=== PATIENT | female | born 1980 | race Caucasian/White ===

== ENCOUNTER 2020-06-02 16:58 | Emergency (ER) | payer MEDICAID, SELFPAY ==
--- NOTE | ~2020-06-02 | CT_ITS ---
EXAMINATION: CT HEAD WITHOUT CONTRAST CT FACIAL BONES WITHOUT CONTRAST CT CERVICAL SPINE WITHOUT CONTRAST CLINICAL INFORMATION: Fall. COMPARISON: CT head and cervical spine 11/19/2019 TECHNIQUE: Imaging was performed from the skull base to vertex without intravenous administration of contrast. In addition, helical noncontrast CT imaging was acquired through the cervical spine and facial bones and source images were reviewed along with axial reconstructions and sagittal and coronal MPRs. [This CT examination was performed using dose optimization techniques as appropriate, variously including the following: *Automated exposure control *Adjustment of mA and/or kV according to patient size (this includes techniques or standardized protocols for targeted exams where dose is matched to indication/reason for exam; i.e. extremities or head) *Use of iterative reconstruction technique] DLP: 1507 mGy-cm FINDINGS: HEAD: No intracranial mass, hemorrhage, or midline shift is visualized. There is mild atrophy, mild prominence of the cortical sulci which is similar to prior study. No extra-axial collections are identified. FACIAL BONES: There is no evidence of an acute facial bone fracture. The paranasal sinuses are well aerated. The orbits are unremarkable in appearance. There is degenerative flattening and irregularity articular surface of the left mandibular condyle the TMJ. CERVICAL SPINE: There is no evidence of acute cervical spine fracture. Vertebral bodies remain normal in height. There is degenerative disc height narrowing and vertebral endplate spurring C5-C6 and C6-C7. No pre- or paravertebral soft tissue abnormality is identified. Limited assessment of the lung apices is unremarkable. CT/CT cervical spine wo con IMPRESSION: 1. No acute intracranial process or discrete facial bone fracture. 2. No acute cervical spine fracture or traumatic subluxation.
[2020-06-02 16:59] VITALS: BMI 20.5
--- NOTE | 2020-06-02 17:00 | PC.NURSE ---
pt to radiology
[2020-06-02 17:07] VITALS: BP 115/67; PULSE 104; RESP 16; TEMP 36.9; O2SAT 97
--- NOTE | 2020-06-02 17:35 | ED.GENADULT ---
HPI - General Adult General Chief complaint: General Medical Stated complaint: MOUTH BLEEDING AND PAIN Time Seen by Provider: 06/02/20 17:10 Source: patient Mode of arrival: ambulatory Limitations: no limitations History of Present Illness HPI narrative: Patient presents to ED for fall. Patient states she felt twice the past 2 days. Patient states she last fell yesterday. Patient states she usually gets around with a wheelchair, but yesterday she try to get her to walk on her own and fell. Patient admitted to drinking alcohol the past 2 days. Patient states she drank alcohol today also, but did not fall. Patient states she bleeding from mouth and nose yesterday. Patient states no bleeding today. Patient denies any chest pain, shortness of breath, headache, dizziness, flank pain Related Data Allergies Allergy/AdvReac Type Severity Reaction Status Date / Time No Known Allergies Allergy Unverified 01/01/20 15:44 Review of Systems Review of Systems: Yes all other systems are reviewed and are negative Constitutional: Constitutional: Reports as per HPI and Reports no additional constitutional complaints Eyes: Eyes: Reports as per HPI and Reports no additional eye complaints ENT: Reports system reviewed and no additional complaints, except as documented, Reports as per HPI, Reports dental pain and Reports neck pain Cardiovascular: Cardiovascular: Reports as per HPI and Reports no additional cardiovascular complaints Respiratory: Respiratory: Reports as per HPI and Reports no additional respiratory complaints Gastrointestinal: Gastrointestinal: Reports as per HPI and Reports no additional gastrointestinal complaints Genitourinary: Genitourinary: Reports no additional female genitourinary complaints and Reports as per HPI Musculoskeletal: Musculoskeletal: Reports no additional musculoskeletal complaints, Reports as per HPI and Reports neck pain Neurologic: Reports system reviewed and no additional complaints, except as documented and Reports as per HPI Psychiatric: Psychiatric: Reports no additional psychiatric complaints and Reports as per HPI PMF Past Medical History Medical History Bronchial asthma DVT (deep vein thrombosis) in H/O varicose veins HTN (hypertension) Nasal bleeding Family History Family History (Updated 03/17/20 @ 11:31 by Radha Smith) Father Pulmonary emboli Brother Throat cancer Social History Social History Alcohol intake: never Smoking Status: Never smoker Use of substances other than those prescribed or required for medical reasons: No Advance Directives: No Advance Directives Information Provided: No Physical Exam Vital Signs: Vital Signs: Last Vital Signs Temp 98.4 F 06/02/20 17:07 Pulse 104 H 06/02/20 17:07 Resp 16 06/02/20 17:07 BP 115/67 06/02/20 17:07 Pulse Ox 97 06/02/20 17:07 Body Mass Index 20.5 Const: General: cooperative, healthy appearing, comfortable, no acute distress, well developed, alert and awake Orientation/consciousness: patient oriented x3 HENMT: Other: Positive for parietal scalp ecchymosis. Positive for frontal scalp hematoma. Positive for dried blood on upper and lower lips. Negative for any lip laceration. Negative for any tongue or buccal mucosal lacerations. Nares negative for any active bleeding or dry blood. Negative for any facial tenderness. Head: Yes normal to inspection, Yes No palpable skull fracture present, Yes normocephalic, No atraumatic, Yes abrasion (Upper or lower lip), No Carbone's sign, Yes hematoma (Parietal), No laceration, No occipital foramen tenderness, No palpable skull fracture and No raccoon eyes Eyes: General: appearance normal, both eyes and all related structures Neck: Neck: Yes normal visual inspection, Yes full ROM, Yes no lymphadenopathy, Yes no meningeal signs, Yes trachea midline, Yes supple and Yes tender (Cervical spine) Chest: Other: Negative for ecchymosis Chest palpation & inspection: normal inspection of the chest and normal palpation of entire chest wall Resp: Effort & Inspection: normal respiratory effort and able to speak in complete sentences Cardio: Jugular venous distension: no JVD Heart sounds: S1 normal heart sound present and S2 normal heart sound present GI: Inspection: Yes normal to inspection and No abdominal wall ecchymosis Palpation (GI): Soft to palpation, not firm, nontender, no guarding and not rigid : General: No CVA tenderness and Yes no CVA tenderness Back/Spine/Pelvis: Back: no CVA tenderness and No CVA tenderness Skin: General skin exam: no rashes or lesions noted and elasticity normal Neuro: Other: Alcohol on breath General: patient oriented x3 and no meningeal signs Extrem: Other: All extremities negative for signs of trauma General: Yes normal to inspection and Yes full ROM Psych: Appearance: grossly normal and disheveled Course Course Course Narrative: Patient here for imaging of the neck, brain, and facial to rule out brain bleed or facial/cervical fracture. Reevaluation(s) Reevaluation #1: Patient images negative for fracture. Patient states he is up-to-date with tetanus. friends to come to [facility] patient and brings her wheelchair. Patient is alert oriented x3 Time: 19:39 Medical Decision Making MDM Narrative Medical decision making narrative: Alcohol abuse. Fall Discharge Plan Discharge Clinical Impression: Alcohol abuse, Fall Patient Disposition: Home, Self-Care Instructions: Head Injury (ED), Abuse of Alcohol (ED) Additional Instructions: Return to the ED immediately for headache, dizziness, chest pain, shortness of breath, abdominal pain, rectal bleeding, vomiting blood, fever, chills, or any other concerning symptoms. Please follow-up with PCP Interventions: ED Discharge Assessment Last Done: 06/02/20 20:11 Discharge Date/Time: 06/02/20 20:11 Print Language: Tristanian
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
== END 2020-06-02 20:11 | disposition home or self-care (01) ==
PROVIDERS: Emergency Provider Internal Medicine; PCP Nurse Practitioner Family
DX: S00.502A Unspecified superficial injury of oral cavity, initial encounter (principal); F10.10 Alcohol abuse, uncomplicated; Y90.9 Presence of alcohol in blood, level not specified; M54.2 Cervicalgia; G44.309 Post-traumatic headache, unspecified, not intractable; K13.79 Other lesions of oral mucosa; I10 Essential (primary) hypertension; W01.0XXA Fall on same level from slipping, tripping and stumbling without subsequent striking against object, initial encounter; Y93.9 Activity, unspecified; Y92.9 Unspecified place or not applicable; Y99.9 Unspecified external cause status; Z86.718 Personal history of other venous thrombosis and embolism; Z79.899 Other long term (current) drug therapy
CPT/HCPCS: 70450; 70486; 72125; 99284

== ENCOUNTER 2020-07-22 01:23 | Emergency (ER) | payer MEDICAID, SELFPAY ==
--- NOTE | ~2020-07-22 | CT_ITS ---
EXAMINATION: CT HEAD WITHOUT CONTRAST CLINICAL INFORMATION: Fall. Left external ear/mastoid bruising. COMPARISON: Most recent CT head dated 06/02/2020. TECHNIQUE: Contiguous axial imaging was performed from the skull base to vertex without intravenous administration of contrast. This CT examination was performed using dose optimization techniques as appropriate, variously including the following: *Automated exposure control *Adjustment of mA and/or kV according to patient size (this includes techniques or standardized protocols for targeted exams where dose is matched to indication/reason for exam; i.e. extremities or head) *Use of iterative reconstruction technique DLP: 680 mGy-cm FINDINGS: There is no evidence of acute intracranial hemorrhage or territorial infarction. No abnormal mass effect or midline shift is seen. Weiss to white matter differentiation is well preserved. No extra-axial fluid collections are identified. The ventricles are normal in size. There is no abnormal attenuation within the brain parenchyma. The osseous structures and soft tissues are normal. The mastoid air cells and visualized portions of the paranasal sinuses are well aerated. CT/CT head/brain wo con IMPRESSION: No acute intracranial hemorrhage or mass effect.
[2020-07-22 01:34] VITALS: BP 118/70; BP 126/71; PULSE 80; PULSE 90; RESP 16; TEMP 36.6; O2SAT 96; O2SAT 99; BMI 23.5
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
--- NOTE | 2020-07-22 02:45 | ECG_ITS ---
Test Reason : WEAKNESS Blood Pressure : / mmHG Vent. Rate : 083 BPM Atrial Rate : 083 BPM P-R Int : 170 ms QRS Dur : 086 ms QT Int : 426 ms P-R-T Axes : 057 033 019 degrees QTc Int : 500 ms Normal sinus rhythm Possible Anterior infarct (cited on or before 10-OCT-2019) Prolonged QT Abnormal ECG When compared with ECG of 10-OCT-2019 12:09, No significant change was found Referred By: Alejandrina Vidal Electronically Signed By:MILLICENT VILLARREAL MD
--- NOTE | 2020-07-22 02:46 | ED_ITS ---
HPI - General Adult General Chief complaint: Skin/Abscess/Foreign Body Stated complaint: RIGHT ARM RASH Time Seen by Provider: 07/22/20 01:34 Source: patient Mode of arrival: EMS History of Present Illness HPI narrative: 39-year-old female with history of chronic alcohol use is brought in by EMS after being called by her boyfriend and patient stating that she has sustained multiple falls. At initial discussion patient is a poor historian. Related Data Previous Rx's Medication Instructions Recorded ciprofloxacin HCl 500 mg PO Q12H 5 Days #10 tab 07/22/20 Allergies Allergy/AdvReac Type Severity Reaction Status Date / Time No Known Allergies Allergy Unverified 01/01/20 15:44 Review of Systems Review of Systems: Yes Unobtainable due to mental status PMFSH Past Medical History Source: nursing notes reviewed Medical History Bronchial asthma DVT (deep vein thrombosis) in H/O varicose veins HTN (hypertension) Nasal bleeding Family History Family History Father Pulmonary emboli Brother Throat cancer Social History Social History Alcohol intake: current Alcohol intake frequency: 3 or more drinks per day Alcohol type: beer Smoking Status: Never smoker Use of substances other than those prescribed or required for medical reasons: No Advance Directives: No Physical Exam Vital Signs: Vital Signs: Last Vital Signs Temp 97.9 F 07/22/20 03:44 Pulse 80 07/22/20 05:43 Resp 16 07/22/20 05:43 BP 106/63 07/22/20 05:43 Pulse Ox 98 07/22/20 05:43 Body Mass Index 23.5 VITAL SIGNS: Reviewed. GENERAL: Well developed, in no acute distress. HEAD: Normocephalic/atraumatic, EYES: PERRLA, EOMI intact without pain, no nystagmus EARS: Left external ear ecchymotic appears to be old with healing ecchymosis noted to the left mastoid otherwise right external canal is without abnormality, bilateral TMs not visualized due to cerumen NOSE: Nares patent bilateral OROPHARYNX: no oral lesions noted, posterior pharynx clear, but there is stigmata of bleeding within mouth and no observed lesions noted. NECK: Supple, no adenopathy LUNGS: Normal breath sounds. No adventitious sounds or accessory muscle use. SpO2<99> CARDIOVASCULAR: Regular rate and rhythm without noted murmurs ABDOMEN: Soft, non-tender, non-distended with bowel sounds. No rigidity. No guarding. No palpable masses or hernias noted MUSCULOSKELETAL: No tenderness, deformities, or effusions noted on gross inspection, but scattered ecchymotic areas. SKIN: Inspection of the skin reveals no rashes, but there are scattered ecchymoses over all extremities as well as trunk in various stages of healing NEUROLOGIC: Drowsy and oriented x 3. Strength and sensation to light touch were grossly intact x 4, cranial nerves 2-12 are grossly intact. Course Course Course Narrative: This is a 39-year-old female with history and clinical presentation consistent with chronic alcohol dependence and although stigmata of bleeding noted within the oral cavity without evidence of intraoral lesions patient denies any vomiting that would otherwise contribute to this finding. On review of investigations patient is noted to be intoxicated which is likely contributing to her multiple falls as well as her current presentation with drowsiness and a poor historian. Otherwise, labs are chronically stable without acute changes. Urinalysis is positive for UTI and patient will receive initial antibiotics and then be discharged within outpatient prescription. Otherwise, CT of the head is negative for any intracranial or mastoid findings. Patient is otherwise stable for discharge and will be provided a shuttle for transportation back to the [place] [id number]. Medical Decision Making Lab Data Result diagrams: 07/22/20 03:20 07/22/20 03:20 Labs: Lab Results 07/22/20 07/22/20 07/22/20 Range/Units 03:20 03:20 03:20 WBC 3.9 L (4.8-10.8) X10*3/uL RBC 2.59 L (4.20-5.50) X10*6/uL Hgb 8.0 L (12.0-16.0) g/dl Hct 25.6 L (37-47) % MCV 98.8 H (80-98) fL MCH 30.9 (27.0-33.0) pg MCHC 31.3 (31.0-35.0) g/dl RDW 15.6 (11.0-16.0) % Plt Count 22 L (160-400) X10*3/uL MPV 8.3 L (9.4-12.3) fL Immature Gran % (Auto) 0.3 (0.0-0.4) % Neut % (Auto) 33.1 L (45-73) % Lymph % (Auto) 57.1 H (20-40) % [place] % (Auto) 7.7 (2-11) % Eos % (Auto) 1.3 (0-4) % Baso % (Auto) 0.5 (0-2) % Lymph # (Auto) 2.2 (1.2-4.9) X10*3/uL [place] # (Auto) 0.3 (0.1-1.2) X10*3/uL Eos # (Auto) 0.1 (0.0-0.4) X10*3/uL Baso # (Auto) 0.0 (0.0-0.2) X10*3/uL Abs Immat Gran (auto) 0.01 (0.00-0.03) X10*3/uL Absolute Neuts (auto) 1.3 L (2.0-8.3) X10*3/uL Absolute Nucleated RBC 0.000 (0.0-0.012) X10*3/uL Nucleated RBC % (auto) 0.0 (0.0-0.2) /100WBC PT 19.9 H (10.8-13.0) SEC INR 1.7 H (0.9-1.1) Sodium 144 (135-145) mmol/L Potassium 3.6 (3.3-5.1) mmol/L Chloride 109 H (96-108) mmol/L Carbon Dioxide 27 (22-29) mmol/L Anion Gap 12 (12-20) BUN 4 L (9-16) mg/dL Creatinine 0.54 (0.5-1.4) mg/dL Estim Creat Clear Calc 133.3 Estimated GFR > 60 Random Glucose 97 (60-115) mg/dL Calcium 7.6 L (8.4-10.2) mg/dL Total Bilirubin 2.7 H (0.0-1.0) mg/dL AST 100 H (5-31) U/L ALT 26 (0-31) U/L Alkaline Phosphatase 119 H (39-117) U/L Total Protein 7.6 (6.5-8.0) g/dL Albumin 3.0 L (3.5-5.0) g/dL Lipase 44 (8-78) U/L Urine Color Urine Appearance Urine pH (5.0-8.0) Ur Specific [place] (1.005-1.025) Urine Protein (NEG-TRACE) MG/DL Urine Glucose (UA) (NEG) MG/DL Urine Ketones (NEG) MG/DL Urine Blood (NEG) Urine Nitrite (NEG) Ur Leukocyte Esterase (NEG) Urine RBC (0) /HPF Urine WBC (0-4) /HPF Urine WBC Clumps Ur Squamous Epith Cells /LPF Urine Bacteria /LPF Urine Test (NEGATIVE) Urine Opiates Screen (Not Detect) Ur Barbiturates Screen (Not Detect) Ur Phencyclidine Scrn (Not Detect) Ur Amphetamines Screen (Not Detect) U Benzodiazepines Scrn (Not Detect) Urine Cocaine Screen (Not Detect) U Marijuana (THC) Screen (Not Detect) Ethyl Alcohol mg/dL COVID-19 (JOHN) (Negative) COVID-19 Clin Com 07/22/20 07/22/20 07/22/20 Range/Units 03:20 03:30 06:08 WBC (4.8-10.8) X10*3/uL RBC (4.20-5.50) X10*6/uL Hgb (12.0-16.0) g/dl Hct (37-47) % MCV (80-98) fL MCH (27.0-33.0) pg MCHC (31.0-35.0) g/dl RDW (11.0-16.0) % Plt Count (160-400) X10*3/uL MPV (9.4-12.3) fL Immature Gran % (Auto) (0.0-0.4) % Neut % (Auto) (45-73) % Lymph % (Auto) (20-40) % [place] % (Auto) (2-11) % Eos % (Auto) (0-4) % Baso % (Auto) (0-2) % Lymph # (Auto) (1.2-4.9) X10*3/uL [place] # (Auto) (0.1-1.2) X10*3/uL Eos # (Auto) (0.0-0.4) X10*3/uL Baso # (Auto) (0.0-0.2) X10*3/uL Abs Immat Gran (auto) (0.00-0.03) X10*3/uL Absolute Neuts (auto) (2.0-8.3) X10*3/uL Absolute Nucleated RBC (0.0-0.012) X10*3/uL Nucleated RBC % (auto) (0.0-0.2) /100WBC PT (10.8-13.0) SEC INR (0.9-1.1) Sodium (135-145) mmol/L Potassium (3.3-5.1) mmol/L Chloride (96-108) mmol/L Carbon Dioxide (22-29) mmol/L Anion Gap (12-20) BUN (9-16) mg/dL Creatinine (0.5-1.4) mg/dL Estim Creat Clear Calc Estimated GFR Random Glucose (60-115) mg/dL Calcium (8.4-10.2) mg/dL Total Bilirubin (0.0-1.0) mg/dL AST (5-31) U/L ALT (0-31) U/L Alkaline Phosphatase (39-117) U/L Total Protein (6.5-8.0) g/dL Albumin (3.5-5.0) g/dL Lipase (8-78) U/L Urine Color YELLOW Urine Appearance HAZY Urine pH 7.0 (5.0-8.0) Ur Specific [place] 1.020 (1.005-1.025) Urine Protein NEG (NEG-TRACE) MG/DL Urine Glucose (UA) NEG (NEG) MG/DL Urine Ketones NEG (NEG) MG/DL Urine Blood TRACE (NEG) Urine Nitrite POS H (NEG) Ur Leukocyte Esterase NEG (NEG) Urine RBC 0 (0) /HPF Urine WBC 1-4 (0-4) /HPF Urine WBC Clumps NOTED Ur Squamous Epith Cells 1+ /LPF Urine Bacteria 3+ /LPF Urine Test (NEGATIVE) Urine Opiates Screen (Not Detect) Ur Barbiturates Screen (Not Detect) Ur Phencyclidine Scrn (Not Detect) Ur Amphetamines Screen (Not Detect) U Benzodiazepines Scrn (Not Detect) Urine Cocaine Screen (Not Detect) U Marijuana (THC) Screen (Not Detect) Ethyl Alcohol 395 H* mg/dL COVID-19 (JOHN) Negative (Negative) COVID-19 Clin Com See Note 07/22/20 07/22/20 Range/Units 06:08 06:08 WBC (4.8-10.8) X10*3/uL RBC (4.20-5.50) X10*6/uL Hgb (12.0-16.0) g/dl Hct (37-47) % MCV (80-98) fL MCH (27.0-33.0) pg MCHC (31.0-35.0) g/dl RDW (11.0-16.0) % Plt Count (160-400) X10*3/uL MPV (9.4-12.3) fL Immature Gran % (Auto) (0.0-0.4) % Neut % (Auto) (45-73) % Lymph % (Auto) (20-40) % [place] % (Auto) (2-11) % Eos % (Auto) (0-4) % Baso % (Auto) (0-2) % Lymph # (Auto) (1.2-4.9) X10*3/uL [place] # (Auto) (0.1-1.2) X10*3/uL Eos # (Auto) (0.0-0.4) X10*3/uL Baso # (Auto) (0.0-0.2) X10*3/uL Abs Immat Gran (auto) (0.00-0.03) X10*3/uL Absolute Neuts (auto) (2.0-8.3) X10*3/uL Absolute Nucleated RBC (0.0-0.012) X10*3/uL Nucleated RBC % (auto) (0.0-0.2) /100WBC PT (10.8-13.0) SEC INR (0.9-1.1) Sodium (135-145) mmol/L Potassium (3.3-5.1) mmol/L Chloride (96-108) mmol/L Carbon Dioxide (22-29) mmol/L Anion Gap (12-20) BUN (9-16) mg/dL Creatinine (0.5-1.4) mg/dL Estim Creat Clear Calc Estimated GFR Random Glucose (60-115) mg/dL Calcium (8.4-10.2) mg/dL Total Bilirubin (0.0-1.0) mg/dL AST (5-31) U/L ALT (0-31) U/L Alkaline Phosphatase (39-117) U/L Total Protein (6.5-8.0) g/dL Albumin (3.5-5.0) g/dL Lipase (8-78) U/L Urine Color Urine Appearance Urine pH (5.0-8.0) Ur Specific [place] (1.005-1.025) Urine Protein (NEG-TRACE) MG/DL Urine Glucose (UA) (NEG) MG/DL Urine Ketones (NEG) MG/DL Urine Blood (NEG) Urine Nitrite (NEG) Ur Leukocyte Esterase (NEG) Urine RBC (0) /HPF Urine WBC (0-4) /HPF Urine WBC Clumps Ur Squamous Epith Cells /LPF Urine Bacteria /LPF Urine Test NEGATIVE (NEGATIVE) Urine Opiates Screen Not Detected (Not Detect) Ur Barbiturates Screen Not Detected (Not Detect) Ur Phencyclidine Scrn Not Detected (Not Detect) Ur Amphetamines Screen Not Detected (Not Detect) U Benzodiazepines Scrn Not Detected (Not Detect) Urine Cocaine Screen Not Detected (Not Detect) U Marijuana (THC) Screen Not Detected (Not Detect) Ethyl Alcohol mg/dL COVID-19 (JOHN) (Negative) COVID-19 Clin Com Discharge Plan Discharge Clinical Impression: Alcohol intoxication Qualifiers: Complication of substance-induced condition: with delirium Qualified Code(s): F10.921 - Alcohol use, unspecified with intoxication delirium UTI (urinary tract infection) Qualifiers: Urinary tract infection type: acute cystitis Hematuria presence: without hematuria Qualified Code(s): N30.00 - Acute cystitis without hematuria Patient Disposition: Home, Self-Care Instructions: Urinary Tract Infection in Women (ED), Alcohol Intoxication (ED) Additional Instructions: Do not hesitate to return to the emergency department should you develop any acute worsening of your symptoms. Make an attempt to cup back in the number of alcoholic beverages you have on a daily basis. Prescriptions: New ciprofloxacin HCl 500 mg tablet 500 mg PO Q12H 5 Days Qty: 10 RF: 0 Referrals: Physician,None [Primary Care Provider] - 2 days
[2020-07-22 03:24] LABS: Basophils Percent Auto 0.5 % (0-2); Eosinophils Absolute Auto 0.1 X10*3/uL (0.0-0.4); Eosinophils Percent Auto 1.3 % (0-4); Hematocrit 25.6 % (37-47); Imm Gran Abs Auto 0.01 X10*3/uL (0.00-0.03); Imm Gran Pct Auto 0.3 % (0.0-0.4); Lymphocytes Absolute Auto 2.2 X10*3/uL (1.2-4.9); Lymphocytes Percent Auto 57.1 % (20-40); MANUAL DIFF FLAG NO; Mean Corpuscular HGB Conc 31.3 g/dl (31.0-35.0); Mean Corpuscular Hemoglobin 30.9 pg (27.0-33.0); Mean Corpuscular Volume 98.8 fL (80-98); Mean Platelet Volume 8.3 fL (9.4-12.3); Monocytes Absolute Auto 0.3 X10*3/uL (0.1-1.2); Monocytes Percent Auto 7.7 % (2-11); Neutrophils Absolute Auto 1.3 X10*3/uL (2.0-8.3); Neutrophils Percent Auto 33.1 % (45-73); Red Blood Count 2.59 X10*6/uL (4.20-5.50); Red Cell Distribution Width 15.6 % (11.0-16.0); White Blood Count 3.9 X10*3/uL (4.8-10.8)
[2020-07-22 03:25] LABS: Platelet Count 22 X10*3/uL (160-400)
[2020-07-22 03:29] LABS: INTERNATIONAL NORM RATIO 1.7 (0.9-1.1); Prothrombin Time 19.9 SEC (10.8-13.0)
[2020-07-22 03:44] VITALS: BP 115/74; PULSE 89; RESP 16; TEMP 36.6; O2SAT 98
[2020-07-22 03:50] LABS: COVID-19 Test Negative (Negative); IDNOW Serial# 9DD0AD1C
[2020-07-22 03:52] LABS: Ethanol 395 mg/dL
[2020-07-22 04:00] LABS: Alanine Aminotransferase 26 U/L (0-31); Alkaline Phosphatase 119 U/L (39-117); Anion Gap 12 (12-20); Aspartate Amino Transferase 100 U/L (5-31); Bilirubin Total 2.7 mg/dL (0.0-1.0); Blood Urea Nitrogen 4 mg/dL (9-16); Calcium 7.6 mg/dL (8.4-10.2); Carbon Dioxide 27 mmol/L (22-29); Chloride 109 mmol/L (96-108); Creatinine Clr Calc Pharmacy 133.3; Estimated Glomerular Filt Rate > 60; Glucose Random 97 mg/dL (60-115); Lipase 44 U/L (8-78); Potassium 3.6 mmol/L (3.3-5.1); Sodium 144 mmol/L (135-145); Total Protein 7.6 g/dL (6.5-8.0)
[2020-07-22 04:29] VITALS: BP 114/32; PULSE 78; RESP 16; O2SAT 97
[2020-07-22 05:43] VITALS: BP 106/63; PULSE 80; RESP 16; O2SAT 98
[2020-07-22 06:32] LABS: Glucose Urine UA NEG (NEG); Leukocyte Esterase Urine NEG (NEG); Nitrite Urine POS (NEG); UACC Culture Trigger YES; Urine Blood TRACE (NEG); Urine Ketones NEG (NEG); Urine Protein NEG (NEG-TRACE)
[2020-07-22 06:47] LABS: Amphetamine Screen Urine Not Detected (Not Detect); Barbiturates, Urine Not Detected (Not Detect); Benzodiazepines Screen Urine Not Detected (Not Detect); Cannabinoid Screen Urine Not Detected (Not Detect); Cocaine Screen Urine Not Detected (Not Detect); Opiate Screen Urine Not Detected (Not Detect); Phencyclidine Screen Urine Not Detected (Not Detect)
[2020-07-22 06:50] LABS: UPreg QC Valid YES; Urine Pregnancy NEGATIVE (NEGATIVE)
[2020-07-22 06:51] LABS: Appearance Urine HAZY; Color Urine YELLOW
[2020-07-22 07:31] LABS: RBC Urine 0 /HPF (0)
[2020-07-22 07:32] LABS: Bacteria Urine 3+ /LPF; Squamous Epithelial Cell Urine 1+ /LPF; WBC Clumps Urine NOTED
[2020-07-22] MEDS: cefTRIAXone sodium 1 GM in 0.9 % Sodium Chloride 50 ML IV (08:28)
== END 2020-07-22 10:26 | disposition home or self-care (01) ==
PROVIDERS: Emergency Provider Student in an Organized Health Care Education/Training Program
DX: F10.221 Alcohol dependence with intoxication delirium (principal); Y90.8 Blood alcohol level of 240 mg/100 ml or more; N30.00 Acute cystitis without hematuria; Z20.822 Contact with and (suspected) exposure to COVID-19; K08.9 Disorder of teeth and supporting structures, unspecified; R40.0 Somnolence; R29.6 Repeated falls; I10 Essential (primary) hypertension; J45.909 Unspecified asthma, uncomplicated; Z86.718 Personal history of other venous thrombosis and embolism
CPT/HCPCS: 36415; 70450; 80053; 80307; 80320; 81001; 81003; 81025; 83690; 85025; 85610; 87086; 87088; 87186; 87635; 93005; 96365; 99284; J0696

== ENCOUNTER 2020-08-04 16:42 | Emergency (ER) | payer MEDICAID, SELFPAY ==
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
[2020-08-04 17:02] VITALS: BP 112/70; BP 140/90; PULSE 60; PULSE 96; RESP 20; TEMP 36.7; O2SAT 96; BMI 23.5
--- NOTE | 2020-08-04 17:09 | PC.NURSE ---
PATIENT NOTICED TO SMELL OF ALCOHOL DURING TRIAGE. DENIES DRINKING/SMOKING/DRUG USE TO THIS RN.
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
[2020-08-04 18:27] LABS: MANUAL DIFF FLAG NO
[2020-08-04 18:34] LABS: Prothrombin Time 24.5 SEC (10.8-13.0)
[2020-08-04 18:44] LABS: Basophils Percent Auto 0.7 % (0-2); Eosinophils Absolute Auto 0.1 X10*3/uL (0.0-0.4); Eosinophils Percent Auto 1.4 % (0-4); Hematocrit 25.3 % (37-47); Hemoglobin 7.8 g/dl (12.0-16.0); Imm Gran Abs Auto 0.01 X10*3/uL (0.00-0.03); Imm Gran Pct Auto 0.2 % (0.0-0.4); Lymphocytes Percent Auto 48.9 % (20-40); Mean Corpuscular HGB Conc 30.8 g/dl (31.0-35.0); Mean Corpuscular Volume 97.3 fL (80-98); Mean Platelet Volume 10.8 fL (9.4-12.3); Monocytes Absolute Auto 0.3 X10*3/uL (0.1-1.2); Monocytes Percent Auto 8.2 % (2-11); Neutrophils Absolute Auto 1.7 X10*3/uL (2.0-8.3); Neutrophils Percent Auto 40.6 % (45-73); Red Cell Distribution Width 16.3 % (11.0-16.0); White Blood Count 4.2 X10*3/uL (4.8-10.8)
[2020-08-04 18:51] LABS: Ethanol 455 mg/dL
[2020-08-04 18:59] LABS: Alanine Aminotransferase 37 U/L (0-31); Albumin Level 2.9 g/dL (3.5-5.0); Alkaline Phosphatase 158 U/L (39-117); Anion Gap 12 (12-20); Aspartate Amino Transferase 156 U/L (5-31); Bilirubin Direct 2.5 mg/dL (0.0-0.5); Bilirubin Total 3.9 mg/dL (0.0-1.0); Blood Urea Nitrogen 3 mg/dL (9-16); Calcium 7.6 mg/dL (8.4-10.2); Carbon Dioxide 27 mmol/L (22-29); Chloride 105 mmol/L (96-108); Creatinine Clr Calc Pharmacy 124.1; Estimated Glomerular Filt Rate > 60; Glucose Random 107 mg/dL (60-115); Magnesium 1.9 mg/dL (1.6-2.6); Potassium 3.5 mmol/L (3.3-5.1); Sodium 140 mmol/L (135-145); Total Protein 7.6 g/dL (6.5-8.0)
[2020-08-04 19:00] LABS: Partial Thromboplastin Time 46.5 SEC (24.1-38.0)
[2020-08-04 19:04] VITALS: BP 123/78; PULSE 88; RESP 18; TEMP 36.6; O2SAT 94
[2020-08-04 19:05] LABS: HCG Quantitative < 2 mIU/mL
[2020-08-04 19:14] LABS: Platelet Count 24 X10*3/uL (160-400)
--- NOTE | 2020-08-04 20:08 | MHC.RECOVSUP ---
? Reason for consult Detox o Current location: ED6H o Identified substance use concern: Alcohol - Support ? Intervention: o Community resources provided o Harm reduction discussion ? Plan: o Patient to follow up with [facility] after discharge ? Additional information: Patient refused help to go to a detox stating that if they go they would lose everything they have in the fpc. I supplied patient with information for [facility] and advised Patient that when they was ready they could go and get help..
[2020-08-04 21:09] VITALS: BP 110/63; PULSE 79; RESP 18; TEMP 36.8; O2SAT 93
[2020-08-04 22:41] VITALS: BP 104/63; PULSE 76; RESP 18; O2SAT 90
[2020-08-05] VITALS: BP 98/68; PULSE 75; RESP 18; O2SAT 90
[2020-08-05 02:00] VITALS: RESP 15
[2020-08-05 04:00] VITALS: RESP 15
[2020-08-05 05:10] VITALS: BP 106/65; PULSE 64; RESP 16; TEMP 37; O2SAT 95
--- NOTE | 2020-08-05 08:50 | PC.NURSE ---
patient needs ambulance or chair van wheel chair bound
== END 2020-08-05 09:39 | disposition home or self-care (01) ==
PROVIDERS: Physician Assistant; Emergency Provider Internal Medicine
DX: D61.818 Other pancytopenia (principal); K70.9 Alcoholic liver disease, unspecified; F10.129 Alcohol abuse with intoxication, unspecified; M54.2 Cervicalgia; G44.309 Post-traumatic headache, unspecified, not intractable; R40.2410 Glasgow coma scale score 13-15, unspecified time; M54.5 Low back pain; Y90.8 Blood alcohol level of 240 mg/100 ml or more; Z79.01 Long term (current) use of anticoagulants; Z79.899 Other long term (current) drug therapy; Z71.41 Alcohol abuse counseling and surveillance of alcoholic
CPT/HCPCS: 36415; 70450; 70486; 72125; 80048; 80076; 80320; 82550; 83735; 84702; 85025; 85610; 85730; 99285

== ENCOUNTER 2020-09-07 23:45 | Emergency (ER) | payer MEDICAID, SELFPAY ==
[2020-09-08 00:05] VITALS: BP 119/69; BP 124/79; PULSE 100; PULSE 103; RESP 33; TEMP 36.6; O2SAT 96; O2SAT 99; BMI 23.5
--- NOTE | 2020-09-08 01:20 | ED.FALL ---
HPI - Fall General Chief Complaint: Fall Stated Complaint: fall/lac left cheek Time Seen by Provider: 09/08/20 01:20 Source: patient Mode of arrival: EMS History of Present Illness HPI Narrative: This is a 39-year-old female who arrives via EMS status post mechanical fall. Patient denies any loss of consciousness or taking blood thinners. She states she has been drinking and that her boyfriend called EMS after she fell. She denies any other drug use. And patient states that the ecchymosis around her left eye is due to a prior fall. Patient uses a walker at baseline. Patient states her last Tdap was 2 years ago. Related Data Previous Rx's Medication Instructions Recorded ciprofloxacin HCl 500 mg PO Q12H 5 Days #10 tab 07/22/20 Allergies Allergy/AdvReac Type Severity Reaction Status Date / Time No Known Allergies Allergy Verified 09/08/20 00:04 Review of Systems Review of Systems: Pertinent positives and negatives as stated in HPI 10 point review of systems is otherwise negative. PMFSH Past Medical History Source: nursing notes reviewed Medical History Alcohol dependence Alcoholic cirrhosis Bronchial asthma DVT (deep vein thrombosis) in H/O varicose veins HTN (hypertension) Nasal bleeding Pancytopenia Family History Family History Father Pulmonary emboli Brother Throat cancer Social History Social History Alcohol intake: current Alcohol intake frequency: does not drink Alcohol type: beer Smoking Status: Never smoker Advance Directives: No Physical Exam Vital Signs: Vital Signs: Last Vital Signs Temp 97.9 F 09/08/20 00:05 Pulse 80 09/08/20 04:25 Resp 15 09/08/20 04:25 BP 117/62 09/08/20 04:25 Pulse Ox 96 09/08/20 04:25 Body Mass Index 23.5 VITAL SIGNS: Reviewed. GENERAL: Well developed, well nourished, in no acute distress. HEAD: Normocephalic/atraumatic EYES: PERRLA, EOMI and icterus noted, periorbital ecchymosis NOSE: Nares patent bilateral OROPHARYNX: no oral lesions noted, posterior pharynx clear NECK: Supple, no adenopathy LUNGS: Normal breath sounds. No adventitious sounds or accessory muscle use. SpO2<99> CARDIOVASCULAR: Regular rate and rhythm without noted murmurs ABDOMEN: Soft, non-tender, non-distended with bowel sounds. SKIN: Inspection of the skin reveals no rashes, but jaundice NEUROLOGIC: Alert and oriented x 4. Strength and sensation to light touch were grossly intact x 4. Course Course Course Narrative: This is a 39-year-old female with history and clinical presentation state with 2 cm laceration to the left cheek secondary to mechanical fall. Repaired laceration to the cheek with Steri-Strips, good approximation, patient is stable for discharge to home. Procedures Laceration Laceration 1: Site: face Side (If applicable): left Size (cm): 3 Description: linear Depth: simple, single layer Pre-repair: wound explored and irrigated extensively Skin layer closed with: other (Steri-Strips) Size (cm): 3-0 Discharge Plan Discharge Clinical Impression: Laceration Patient Disposition: Home, Self-Care Instructions: Facial Laceration (ED) Additional Instructions: Recommend using [id number] Tylenol/ibuprofen as needed for pain control. These Steri-Strips were rule gradually come loose as the wound heals. Return to the ER for any acute worsening of your symptoms. Prescriptions: No Action ciprofloxacin HCl 500 mg tablet 500 mg PO Q12H 5 Days Qty: 10 RF: 0 Referrals: Physician,None [Primary Care Provider] - 2 days
[2020-09-08 01:51] VITALS: BP 104/58; PULSE 94; RESP 14; O2SAT 93
[2020-09-08 04:25] VITALS: BP 117/62; PULSE 80; RESP 15; O2SAT 96
[2020-09-08 06:23] VITALS: BP 129/74; PULSE 94; RESP 17; O2SAT 97
[2020-09-08 07:27] VITALS: BP 120/73; PULSE 86; RESP 16; TEMP 36.9; O2SAT 98
== END 2020-09-08 07:54 | disposition home or self-care (01) ==
PROVIDERS: Emergency Provider Student in an Organized Health Care Education/Training Program
DX: S01.81XA Laceration without foreign body of other part of head, initial encounter (principal); R51.9 Headache, unspecified; W01.0XXA Fall on same level from slipping, tripping and stumbling without subsequent striking against object, initial encounter; Y93.9 Activity, unspecified; Y92.9 Unspecified place or not applicable; Y99.9 Unspecified external cause status
CPT/HCPCS: 12013; 99284

== ENCOUNTER 2020-09-14 19:49 | Inpatient (IN) | payer MEDICAID, SELFPAY ==
--- NOTE | ~2020-09-14 | US_ITS ---
EXAMINATION: US ABDOMEN LIMITED CLINICAL INFORMATION: Cirrhosis, screen for ascites/hepatocellular carcinoma. COMPARISON: CT abdomen and pelvis with intravenous contrast dated 11/19/2019. Ultrasound abdomen complete dated 10/10/2019 and 04/24/2018. TECHNIQUE: Real-time imaging of all 4 quadrants. FINDINGS: No fluid was visualized in all 4 abdominal quadrants. US/US abdomen limited IMPRESSION: No peritoneal ascites.
--- NOTE | ~2020-09-14 | CT_ITS ---
EXAMINATION: CT BRAIN, CT CERVICAL SPINE AND CT FACIAL BONES WITHOUT CONTRAST. CLINICAL INFORMATION: Drinking and fall. COMPARISON: None TECHNIQUE: 5 minutes and axial and reformatted 2 mm thin sagittal coronal images of brain were obtained. Axial 1.5 mm thin and reformatted 1.5 a thin sagittal coronal images of facial bones were obtained. Lastly axial 3 mm thin and reformatted 2 mm thin sagittal and coronal images of cervical spine were obtained. [id number]. FINDINGS: BRAIN: There is no acute intra-axial, extra-axial bleed, masses or midline shift. There is no acute infarction in evolution. The lateral ventricles are symmetrical in size and configuration with mild enlargement. Bone windows reveal no calvarial abnormality. There is no scalp soft tissue abnormality. Bilateral paranasal sinuses and mastoid air cells are well-aerated. FACIAL BONES: There is no visible maxillofacial facial, nasal fractures or soft tissue swelling. Bilateral paranasal sinus rodriguez are intact. The lamina papyracea and the cribriform plate is intact. The paranasal sinuses are well-aerated and clear. The bony orbits are intact. Visualized bilateral optic globe, optic, optic nerve and extraocular muscles are normal. Bilateral TM joints and the mandible is intact. CERVICAL SPINE: On sagittal reconstructed images there is mild straightening of cervical lordosis. The vertebral heights and alignment is normal. There is loss of C5-C6 and C6-C7 disc heights with moderate ventral and posterior spondylosis. No visible acute fracture or dislocation seen. The craniovertebral junction and the C1-C2 alignment is normal. The prevertebral and the and paravertebral soft tissues are normal. CT/CT cervical spine wo con IMPRESSION: No acute intracranial process seen. No maxillofacial, nasal or mandibular fracture. Mild straightening of cervical lordosis without any acute fracture or dislocation. There are degenerative disc changes and spondylosis at C5-C6 and C6-C7 disc levels.
[2020-09-14 20:05] VITALS: BP 119/71; PULSE 99; RESP 16; TEMP 36.9; O2SAT 98; BMI 23.5
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
[2020-09-14 21:03] LABS: MANUAL DIFF FLAG NO
[2020-09-14 21:07] LABS: Basophils Percent Auto 0.9 % (0-2); Eosinophils Absolute Auto 0.1 X10*3/uL (0.0-0.4); Eosinophils Percent Auto 1.5 % (0-4); Hematocrit 22.8 % (37-47); Imm Gran Abs Auto 0.02 X10*3/uL (0.00-0.03); Imm Gran Pct Auto 0.6 % (0.0-0.4); Lymphocytes Absolute Auto 1.4 X10*3/uL (1.2-4.9); Lymphocytes Percent Auto 40.5 % (20-40); Mean Corpuscular HGB Conc 29.4 g/dl (31.0-35.0); Mean Corpuscular Hemoglobin 28.6 pg (27.0-33.0); Mean Corpuscular Volume 97.4 fL (80-98); Mean Platelet Volume 8.3 fL (9.4-12.3); Monocytes Absolute Auto 0.3 X10*3/uL (0.1-1.2); Monocytes Percent Auto 7.5 % (2-11); Neutrophils Absolute Auto 1.6 X10*3/uL (2.0-8.3); Platelet Count 72 X10*3/uL (160-400); Red Blood Count 2.34 X10*6/uL (4.20-5.50); Red Cell Distribution Width 17.7 % (11.0-16.0); White Blood Count 3.3 X10*3/uL (4.8-10.8)
[2020-09-14 21:10] LABS: Hemoglobin 6.7 g/dl (12.0-16.0); INTERNATIONAL NORM RATIO 2.1 (0.9-1.1); Prothrombin Time 24.6 SEC (10.8-13.0)
[2020-09-14 21:36] LABS: Ethanol 397 mg/dL
[2020-09-14 21:41] LABS: Alanine Aminotransferase 19 U/L (0-31); Albumin Level 2.6 g/dL (3.5-5.0); Alkaline Phosphatase 175 U/L (39-117); Anion Gap 14 (12-20); Aspartate Amino Transferase 88 U/L (5-31); Bilirubin Direct 3.9 mg/dL (0.0-0.5); Bilirubin Total 5.9 mg/dL (0.0-1.0); Blood Urea Nitrogen 5 mg/dL (9-16); Calcium 7.2 mg/dL (8.4-10.2); Carbon Dioxide 25 mmol/L (22-29); Chloride 107 mmol/L (96-108); Creatinine Clr Calc Pharmacy 124.1; Estimated Glomerular Filt Rate > 60; Glucose Random 114 mg/dL (60-115); Lipase 68 U/L (8-78); Potassium 3.6 mmol/L (3.3-5.1); Sodium 142 mmol/L (135-145); Total Protein 7.2 g/dL (6.5-8.0)
--- NOTE | 2020-09-14 21:45 | ED_ITS ---
HPI - General Adult General Chief complaint: ETOH/Substance Use <NEFTALY Agarwal - Last Filed: 09/15/20 04:06> Stated complaint: ETOH <NEFTALY Agarwal Last Filed: 09/15/20 04:06> Time Seen by Provider: 09/14/20 21:15 <NEFTALY Agarwal Last Filed: 09/15/20 04:06> Source: patient <NEFTALY Agarwal Last Filed: 09/15/20 04:06> Mode of arrival: ambulatory <NEFTALY Agarwal Last Filed: 09/15/20 04:06> Limitations: no limitations <NEFTALY Agarwal Last Filed: 09/15/20 04:06> History of Present Illness HPI narrative: Patient presents to ED for alcohol on breath. Patient found in a park drinking. Patient states she fell 3 days ago which is why she has bruising on left side of face. Patient denies any abdominal pain. <NEFTALY Agarwal Last Filed: 09/15/20 04:06> Related Data Home medications: Previous Rx's Medication Instructions Recorded ciprofloxacin HCl 500 mg PO Q12H 5 Days #10 tab 07/22/20 <NEFTALY Agarwal Last Filed: 09/15/20 04:06> Allergies/adverse reactions: Allergies Allergy/AdvReac Type Severity Reaction Status Date / Time No Known Allergies Allergy Verified 09/08/20 00:04 <NEFTALY Agarwal Last Filed: 09/15/20 04:06> Review of Systems Review of Systems: Alcohol on breath <NEFTALY Agarwal Last Filed: 09/15/20 04:06> Constitutional: Constitutional: Reports as per HPI and Reports no additional constitutional complaints <NEFTALY Agarwal Last Filed: 09/15/20 04:06> Eyes: Eyes: Reports as per HPI and Reports no additional eye complaints <NEFTALY Agarwal Last Filed: 09/15/20 04:06> Comments: Facial ecchymosis <NEFTALY Agarwal Last Filed: 09/15/20 04:06> ENT: Reports system reviewed and no additional complaints, except as documente d and Reports as per HPI <NEFTALY Agarwal Last Filed: 09/15/20 04:06> Cardiovascular: Cardiovascular: Reports as per HPI and Reports no additional cardiovascular complaints <NEFTALY Agarwal Last Filed: 09/15/20 04:06> Respiratory: Respiratory: Reports as per HPI and Reports no additional respiratory complaints <NEFTALY Agarwal Last Filed: 09/15/20 04:06> Gastrointestinal: Gastrointestinal: Reports as per HPI and Reports no additional gastrointestinal complaints <NEFTALY Agarwal Last Filed: 09/15/20 04:06> Genitourinary: Genitourinary: Reports no additional female genitourinary complaints and Reports as per HPI <NEFTALY Agarwal Last Filed: 09/15/20 04:06> Musculoskeletal: Musculoskeletal: Reports no additional musculoskeletal compl aints and Reports as per HPI <NEFTALY Agarwal Last Filed: 09/15/20 04:06> Neurologic: Reports system reviewed and no additional complaints, except as documented and Reports as per HPI <NEFTALY Agarwal Last Filed: 09/15/20 04:06> [facility] Past Medical History Medical History: Medical History Alcohol dependence Alcoholic cirrhosis Bronchial asthma DVT (deep vein thrombosis) in H/O varicose veins HTN (hypertension) Nasal bleeding Pancytopenia <NEFTALY Agarwal Last Filed: 09/15/20 04:06> Family History Family History: Family History Father Pulmonary emboli Brother Throat cancer <NEFTALY Agarwal - Last Filed: 09/15/20 04:06> Social History Social History: Social History Alcohol intake: current Alcohol intake frequency: does not drink Alcohol type: beer Advance Directives: No Advance Directives Information Provided: No Patient : No <NEFTALY Agarwal Last Filed: 09/15/20 04:06> Physical Exam Vital Signs: Vital Signs: Last Vital Signs Temp 98.5 F 09/15/20 06:14 Pulse 78 09/15/20 07:32 Resp 16 09/15/20 07:32 BP 131/78 09/15/20 07:32 Pulse Ox 98 09/15/20 07:32 Body Mass Index 23.5 <NEFTALY Agarwal Last Filed: 09/15/20 04:06> Vital Signs: Last Vital Signs Temp 98.5 F 09/15/20 06:14 Pulse 78 09/15/20 07:32 Resp 16 09/15/20 07:32 BP 131/78 09/15/20 07:32 Pulse Ox 98 09/15/20 07:32 Body Mass Index 23.5 <Karen Lui MD - Last Filed: 09/15/20 07:55> Const: Other: Alcohol on breath <NEFTALY Agarwal Last Filed: 09/15/20 04:06> General: cooperative, healthy appearing, comfortable, no acute distress, well developed, alert, awake and Physically active <NEFTALY Agarwal Last Filed: 09/15/20 04:06> HENMT: Head: Yes normal to inspection, Yes No palpable skull fracture present, Yes normocephalic and Yes periorbital ecchymosis <NEFTALY Agarwal Last Filed: 09/15/20 04:06> Eyes: Other: Icterus <NEFTALY Agarwal Last Filed: 09/15/20 04:06> General: appearance normal, both eyes and all related structures <NEFTALY Nuñez - Last Filed: 09/15/20 04:06> Neck: Neck: Yes normal visual inspection, Yes full ROM, Yes no lymphadenopathy, Yes no meningeal signs, Yes trachea midline, Yes supple and No tender <NEFTALY Agarwal Last Filed: 09/15/20 04:06> Chest: Chest palpation & inspection: normal inspection of the chest and normal palpation of entire chest wall <NEFTALY Agarwal Last Filed: 09/15/20 04:06> Resp: Effort & Inspection: normal respiratory effort and able to speak in complete sentences <NEFTALY Agarwal Last Filed: 09/15/20 04:06> Auscultation: clear to auscultation bilaterally <NEFTALY Agarwal Last Filed: 09/15/20 04:06> Cardio: Jugular venous distension: no JVD <NEFTALY Agarwal Last Filed: 09/15/20 04:06> Heart sounds: S1 normal heart sound present and S2 normal heart sound present <NEFTALY Agarwal Last Filed: 09/15/20 04:06> GI: Inspection: Yes normal to inspection and No abdominal wall ecchymosis <NEFTALY Agarwal Last Filed: 09/15/20 04:06> Palpation (GI): Soft to palpation, not firm, nontender, no guarding and not rigid <NEFTALY Agarwal Last Filed: 09/15/20 04:06> : General: No CVA tenderness and Yes no CVA tenderness <NEFTALY Agarwal Last Filed: 09/15/20 04:06> Back/Spine/Pelvis: Back: no CVA tenderness, No CVA tenderness and No back tenderness <NEFTALY Agarwal Last Filed: 09/15/20 04:06> Skin: Other: Jaundice <NEFTALY Agarwal Last Filed: 09/15/20 04:06> General skin exam: no rashes or lesions noted and elasticity normal <NEFTALY Agarwal Last Filed: 09/15/20 04:06> Neuro: Other: Alcohol on breath <NEFTALY Agarwal Last Filed: 09/15/20 04:06> General: gait normal, no meningeal signs and CN's II-XI intact bilaterally <NEFTALY Agarwal Last Filed: 09/15/20 04:06> Extrem: General: Yes normal to inspection and Yes full ROM <NEFTALY Agarwal Last Filed: 09/15/20 04:06> Psych: Appearance: grossly normal, well kempt and not disheveled <NEFTALY Agarwal Last Filed: 09/15/20 04:06> Course Course Course Narrative: Patient will have labs drawn. Patient toxic gait. <NEFTALY Agarwal Last Filed: 09/15/20 04:06> I received sign out from NEFTALY Ferrera, pt is currently getting her second unit of blood. Pt's ammonia level is above 100. However, pt is alert and oriented x 3, able to hold normal coversation. I discussed admission with the patient, who does not want to be admitted. I discussed the pt with Dr. Guajardo, does not believe pt needs to be admitted. Pt will receive oral dose of lactulose. Pt will also get a repeat H&H. H&H was repeated, now 8.5. Pt has not received yet lactulose. Pt A&O x3, ammonia level 112. Pt was to leave AMA. Pt's boyfriend is on the phone with her trying to convince her to stay. He states that the pt has had multiple falls. Sigh out given to Dr. Mayer. <Karen Lui MD - Last Filed: 09/15/20 07:55> Reevaluation(s) Reevaluation #1: Patient's hemoglobin came back 6.7. Rectal exam done negative for black stools or francoise blood. Occult stool guaiacs sent. <NEFTALY Agarwal - Last Filed: 09/15/20 04:06> Reevaluation #2: Occult stool guaiac is negative. Patient toxic aided. Patient will receive blood. Provided a consent signed by myself and Dr. Bowen. due to patient being intoxicated. Patient cannot give consent. Case was presented to Dr. Nolasco, hospitalist, for admission and she states patient does not need admission. she states patient can be transfused blood and than discharged. Will repeat CBC after blood. Case signed out to Dr. Lui to follow up CBC and discharge when sober. Patient has pmh of pancytopenia due alcoholism. head, facial, and cervical spine ct normal <NEFTALY Agarwal - Last Filed: 09/15/20 04:06> Medical Decision Making MDM Narrative Medical decision making narrative: ALcohol intox. ANemi <NEFTALY Agarwal - Last Filed: 09/15/20 04:06> Lab Data Result diagrams: : 09/15/20 06:56 09/14/20 20:58 <NEFTALY Agarwal - Last Filed: 09/15/20 04:06> Labs: Lab Results 09/14/20 09/14/20 09/14/20 Range/Units 20:58 20:58 20:58 WBC 3.3 L (4.8-10.8) X10*3/uL RBC 2.34 L (4.20-5.50) X10*6/uL Hgb 6.7 L* (12.0-16.0) g/dl Hct 22.8 L (37-47) % MCV 97.4 (80-98) fL MCH 28.6 (27.0-33.0) pg MCHC 29.4 L (31.0-35.0) g/dl RDW 17.7 H (11.0-16.0) % Plt Count 72 L D (160-400) X10*3/uL MPV 8.3 L (9.4-12.3) fL Immature Gran % (Auto) 0.6 H (0.0-0.4) % Neut % (Auto) 49.0 (45-73) % Lymph % (Auto) 40.5 H (20-40) % Lawrence % (Auto) 7.5 (2-11) % Eos % (Auto) 1.5 (0-4) % Baso % (Auto) 0.9 (0-2) % Lymph # (Auto) 1.4 (1.2-4.9) X10*3/uL Lawrence # (Auto) 0.3 (0.1-1.2) X10*3/uL Eos # (Auto) 0.1 (0.0-0.4) X10*3/uL Baso # (Auto) 0.0 (0.0-0.2) X10*3/uL Abs Immat Gran (auto) 0.02 (0.00-0.03) X10*3/uL Absolute Neuts (auto) 1.6 L (2.0-8.3) X10*3/uL Absolute Nucleated RBC 0.000 (0.0-0.012) X10*3/uL Nucleated RBC % (auto) 0.0 (0.0-0.2) /100WBC Hold Purple Top SEE NOTE PT 24.6 H (10.8-13.0) SEC INR 2.1 H (0.9-1.1) Sodium (135-145) mmol/L Potassium (3.3-5.1) mmol/L Chloride (96-108) mmol/L Carbon Dioxide (22-29) mmol/L Anion Gap (12-20) BUN (9-16) mg/dL Creatinine (0.5-1.4) mg/dL Estim Creat Clear Calc Estimated GFR Random Glucose (60-115) mg/dL Calcium (8.4-10.2) mg/dL Total Bilirubin (0.0-1.0) mg/dL Direct Bilirubin (0.0-0.5) mg/dL AST (5-31) U/L ALT (0-31) U/L Alkaline Phosphatase (39-117) U/L Ammonia (13-55) umol/L Total Protein (6.5-8.0) g/dL Albumin (3.5-5.0) g/dL Lipase (8-78) U/L Stool Occult Blood (NEGATIVE) Ethyl Alcohol mg/dL COVID-19 (JOHN) (Negative) COVID-19 Clin Com Blood Type Antibody Screen Crossmatch (AHG) 09/14/20 09/14/20 09/14/20 Range/Units 20:58 20:58 21:55 WBC (4.8-10.8) X10*3/uL RBC (4.20-5.50) X10*6/uL Hgb (12.0-16.0) g/dl Hct (37-47) % MCV (80-98) fL MCH (27.0-33.0) pg MCHC (31.0-35.0) g/dl RDW (11.0-16.0) % Plt Count (160-400) X10*3/uL MPV (9.4-12.3) fL Immature Gran % (Auto) (0.0-0.4) % Neut % (Auto) (45-73) % Lymph % (Auto) (20-40) % Lawrence % (Auto) (2-11) % Eos % (Auto) (0-4) % Baso % (Auto) (0-2) % Lymph # (Auto) (1.2-4.9) X10*3/uL Lawrence # (Auto) (0.1-1.2) X10*3/uL Eos # (Auto) (0.0-0.4) X10*3/uL Baso # (Auto) (0.0-0.2) X10*3/uL Abs Immat Gran (auto) (0.00-0.03) X10*3/uL Absolute Neuts (auto) (2.0-8.3) X10*3/uL Absolute Nucleated RBC (0.0-0.012) X10*3/uL Nucleated RBC % (auto) (0.0-0.2) /100WBC Hold Purple Top PT (10.8-13.0) SEC INR (0.9-1.1) Sodium 142 (135-145) mmol/L Potassium 3.6 (3.3-5.1) mmol/L Chloride 107 (96-108) mmol/L Carbon Dioxide 25 (22-29) mmol/L Anion Gap 14 (12-20) BUN 5 L D (9-16) mg/dL Creatinine 0.58 (0.5-1.4) mg/dL Estim Creat Clear Calc 124.1 Estimated GFR > 60 Random Glucose 114 (60-115) mg/dL Calcium 7.2 L (8.4-10.2) mg/dL Total Bilirubin 5.9 H (0.0-1.0) mg/dL Direct Bilirubin 3.9 H (0.0-0.5) mg/dL AST 88 H (5-31) U/L ALT 19 (0-31) U/L Alkaline Phosphatase 175 H (39-117) U/L Ammonia (13-55) umol/L Total Protein 7.2 (6.5-8.0) g/dL Albumin 2.6 L (3.5-5.0) g/dL Lipase 68 (8-78) U/L Stool Occult Blood (NEGATIVE) Ethyl Alcohol 397 H* mg/dL COVID-19 (JOHN) (Negative) COVID-19 Clin Com Blood Type A Positive Antibody Screen NEGATIVE Crossmatch (AHG) See Detail 09/14/20 09/15/20 09/15/20 Range/Units 21:55 01:04 04:37 WBC (4.8-10.8) X10*3/uL RBC (4.20-5.50) X10*6/uL Hgb (12.0-16.0) g/dl Hct (37-47) % MCV (80-98) fL MCH (27.0-33.0) pg MCHC (31.0-35.0) g/dl RDW (11.0-16.0) % Plt Count (160-400) X10*3/uL MPV (9.4-12.3) fL Immature Gran % (Auto) (0.0-0.4) % Neut % (Auto) (45-73) % Lymph % (Auto) (20-40) % Lawrence % (Auto) (2-11) % Eos % (Auto) (0-4) % Baso % (Auto) (0-2) % Lymph # (Auto) (1.2-4.9) X10*3/uL Lawrence # (Auto) (0.1-1.2) X10*3/uL Eos # (Auto) (0.0-0.4) X10*3/uL Baso # (Auto) (0.0-0.2) X10*3/uL Abs Immat Gran (auto) (0.00-0.03) X10*3/uL Absolute Neuts (auto) (2.0-8.3) X10*3/uL Absolute Nucleated RBC (0.0-0.012) X10*3/uL Nucleated RBC % (auto) (0.0-0.2) /100WBC Hold Purple Top PT (10.8-13.0) SEC INR (0.9-1.1) Sodium (135-145) mmol/L Potassium (3.3-5.1) mmol/L Chloride (96-108) mmol/L Carbon Dioxide (22-29) mmol/L Anion Gap (12-20) BUN (9-16) mg/dL Creatinine (0.5-1.4) mg/dL Estim Creat Clear Calc Estimated GFR Random Glucose (60-115) mg/dL Calcium (8.4-10.2) mg/dL Total Bilirubin (0.0-1.0) mg/dL Direct Bilirubin (0.0-0.5) mg/dL AST (5-31) U/L ALT (0-31) U/L Alkaline Phosphatase (39-117) U/L Ammonia 112 H (13-55) umol/L Total Protein (6.5-8.0) g/dL Albumin (3.5-5.0) g/dL Lipase (8-78) U/L Stool Occult Blood NEGATIVE (NEGATIVE) Ethyl Alcohol mg/dL COVID-19 (JOHN) Negative (Negative) COVID-19 Clin Com See Note Blood Type Antibody Screen Crossmatch (AHG) 09/15/20 Range/Units 06:56 WBC 4.2 L (4.8-10.8) X10*3/uL RBC 2.92 L D (4.20-5.50) X10*6/uL Hgb 8.5 L D (12.0-16.0) g/dl Hct 27.7 L D (37-47) % MCV 94.9 (80-98) fL MCH 29.1 (27.0-33.0) pg MCHC 30.7 L (31.0-35.0) g/dl RDW 17.9 H (11.0-16.0) % Plt Count 44 L D (160-400) X10*3/uL MPV 8.7 L (9.4-12.3) fL Immature Gran % (Auto) 0.5 H (0.0-0.4) % Neut % (Auto) 45.0 (45-73) % Lymph % (Auto) 44.2 H (20-40) % Lawrence % (Auto) 7.9 (2-11) % Eos % (Auto) 1.4 (0-4) % Baso % (Auto) 1.0 (0-2) % Lymph # (Auto) 1.8 (1.2-4.9) X10*3/uL Lawrence # (Auto) 0.3 (0.1-1.2) X10*3/uL Eos # (Auto) 0.1 (0.0-0.4) X10*3/uL Baso # (Auto) 0.0 (0.0-0.2) X10*3/uL Abs Immat Gran (auto) 0.02 (0.00-0.03) X10*3/uL Absolute Neuts (auto) 1.9 L (2.0-8.3) X10*3/uL Absolute Nucleated RBC 0.000 (0.0-0.012) X10*3/uL Nucleated RBC % (auto) 0.0 (0.0-0.2) /100WBC Hold Purple Top PT (10.8-13.0) SEC INR (0.9-1.1) Sodium (135-145) mmol/L Potassium (3.3-5.1) mmol/L Chloride (96-108) mmol/L Carbon Dioxide (22-29) mmol/L Anion Gap (12-20) BUN (9-16) mg/dL Creatinine (0.5-1.4) mg/dL Estim Creat Clear Calc Estimated GFR Random Glucose (60-115) mg/dL Calcium (8.4-10.2) mg/dL Total Bilirubin (0.0-1.0) mg/dL Direct Bilirubin (0.0-0.5) mg/dL AST (5-31) U/L ALT (0-31) U/L Alkaline Phosphatase (39-117) U/L Ammonia (13-55) umol/L Total Protein (6.5-8.0) g/dL Albumin (3.5-5.0) g/dL Lipase (8-78) U/L Stool Occult Blood (NEGATIVE) Ethyl Alcohol mg/dL COVID-19 (JOHN) (Negative) COVID-19 Clin Com Blood Type Antibody Screen Crossmatch (AHG) <NEFTALY Agarwal - Last Filed: 09/15/20 04:06> Lab Results 09/14/20 09/14/20 09/14/20 Range/Units 20:58 20:58 20:58 WBC 3.3 L (4.8-10.8) X10*3/uL RBC 2.34 L (4.20-5.50) X10*6/uL Hgb 6.7 L* (12.0-16.0) g/dl Hct 22.8 L (37-47) % MCV 97.4 (80-98) fL MCH 28.6 (27.0-33.0) pg MCHC 29.4 L (31.0-35.0) g/dl RDW 17.7 H (11.0-16.0) % Plt Count 72 L D (160-400) X10*3/uL MPV 8.3 L (9.4-12.3) fL Immature Gran % (Auto) 0.6 H (0.0-0.4) % Neut % (Auto) 49.0 (45-73) % Lymph % (Auto) 40.5 H (20-40) % Lawrence % (Auto) 7.5 (2-11) % Eos % (Auto) 1.5 (0-4) % Baso % (Auto) 0.9 (0-2) % Lymph # (Auto) 1.4 (1.2-4.9) X10*3/uL Lawrence # (Auto) 0.3 (0.1-1.2) X10*3/uL Eos # (Auto) 0.1 (0.0-0.4) X10*3/uL Baso # (Auto) 0.0 (0.0-0.2) X10*3/uL Abs Immat Gran (auto) 0.02 (0.00-0.03) X10*3/uL Absolute Neuts (auto) 1.6 L (2.0-8.3) X10*3/uL Absolute Nucleated RBC 0.000 (0.0-0.012) X10*3/uL Nucleated RBC % (auto) 0.0 (0.0-0.2) /100WBC Hold Purple Top SEE NOTE PT 24.6 H (10.8-13.0) SEC INR 2.1 H (0.9-1.1) Sodium (135-145) mmol/L Potassium (3.3-5.1) mmol/L Chloride (96-108) mmol/L Carbon Dioxide (22-29) mmol/L Anion Gap (12-20) BUN (9-16) mg/dL Creatinine (0.5-1.4) mg/dL Estim Creat Clear Calc Estimated GFR Random Glucose (60-115) mg/dL Calcium (8.4-10.2) mg/dL Total Bilirubin (0.0-1.0) mg/dL Direct Bilirubin (0.0-0.5) mg/dL AST (5-31) U/L ALT (0-31) U/L Alkaline Phosphatase (39-117) U/L Ammonia (13-55) umol/L Total Protein (6.5-8.0) g/dL Albumin (3.5-5.0) g/dL Lipase (8-78) U/L Stool Occult Blood (NEGATIVE) Ethyl Alcohol mg/dL COVID-19 (JOHN) (Negative) COVID-19 Clin Com Blood Type Antibody Screen Crossmatch (AHG) 09/14/20 09/14/20 09/14/20 Range/Units 20:58 20:58 21:55 WBC (4.8-10.8) X10*3/uL RBC (4.20-5.50) X10*6/uL Hgb (12.0-16.0) g/dl Hct (37-47) % MCV (80-98) fL MCH (27.0-33.0) pg MCHC (31.0-35.0) g/dl RDW (11.0-16.0) % Plt Count (160-400) X10*3/uL MPV (9.4-12.3) fL Immature Gran % (Auto) (0.0-0.4) % Neut % (Auto) (45-73) % Lymph % (Auto) (20-40) % Lawrence % (Auto) (2-11) % Eos % (Auto) (0-4) % Baso % (Auto) (0-2) % Lymph # (Auto) (1.2-4.9) X10*3/uL Lawrence # (Auto) (0.1-1.2) X10*3/uL Eos # (Auto) (0.0-0.4) X10*3/uL Baso # (Auto) (0.0-0.2) X10*3/uL Abs Immat Gran (auto) (0.00-0.03) X10*3/uL Absolute Neuts (auto) (2.0-8.3) X10*3/uL Absolute Nucleated RBC (0.0-0.012) X10*3/uL Nucleated RBC % (auto) (0.0-0.2) /100WBC Hold Purple Top PT (10.8-13.0) SEC INR (0.9-1.1) Sodium 142 (135-145) mmol/L Potassium 3.6 (3.3-5.1) mmol/L Chloride 107 (96-108) mmol/L Carbon Dioxide 25 (22-29) mmol/L Anion Gap 14 (12-20) BUN 5 L D (9-16) mg/dL Creatinine 0.58 (0.5-1.4) mg/dL Estim Creat Clear Calc 124.1 Estimated GFR > 60 Random Glucose 114 (60-115) mg/dL Calcium 7.2 L (8.4-10.2) mg/dL Total Bilirubin 5.9 H (0.0-1.0) mg/dL Direct Bilirubin 3.9 H (0.0-0.5) mg/dL AST 88 H (5-31) U/L ALT 19 (0-31) U/L Alkaline Phosphatase 175 H (39-117) U/L Ammonia (13-55) umol/L Total Protein 7.2 (6.5-8.0) g/dL Albumin 2.6 L (3.5-5.0) g/dL Lipase 68 (8-78) U/L Stool Occult Blood (NEGATIVE) Ethyl Alcohol 397 H* mg/dL COVID-19 (JOHN) (Negative) COVID-19 Clin Com Blood Type A Positive Antibody Screen NEGATIVE Crossmatch (AHG) See Detail 09/14/20 09/15/20 09/15/20 Range/Units 21:55 01:04 04:37 WBC (4.8-10.8) X10*3/uL RBC (4.20-5.50) X10*6/uL Hgb (12.0-16.0) g/dl Hct (37-47) % MCV (80-98) fL MCH (27.0-33.0) pg MCHC (31.0-35.0) g/dl RDW (11.0-16.0) % Plt Count (160-400) X10*3/uL MPV (9.4-12.3) fL Immature Gran % (Auto) (0.0-0.4) % Neut % (Auto) (45-73) % Lymph % (Auto) (20-40) % Lawrence % (Auto) (2-11) % Eos % (Auto) (0-4) % Baso % (Auto) (0-2) % Lymph # (Auto) (1.2-4.9) X10*3/uL Lawrence # (Auto) (0.1-1.2) X10*3/uL Eos # (Auto) (0.0-0.4) X10*3/uL Baso # (Auto) (0.0-0.2) X10*3/uL Abs Immat Gran (auto) (0.00-0.03) X10*3/uL Absolute Neuts (auto) (2.0-8.3) X10*3/uL Absolute Nucleated RBC (0.0-0.012) X10*3/uL Nucleated RBC % (auto) (0.0-0.2) /100WBC Hold Purple Top PT (10.8-13.0) SEC INR (0.9-1.1) Sodium (135-145) mmol/L Potassium (3.3-5.1) mmol/L Chloride (96-108) mmol/L Carbon Dioxide (22-29) mmol/L Anion Gap (12-20) BUN (9-16) mg/dL Creatinine (0.5-1.4) mg/dL Estim Creat Clear Calc Estimated GFR Random Glucose (60-115) mg/dL Calcium (8.4-10.2) mg/dL Total Bilirubin (0.0-1.0) mg/dL Direct Bilirubin (0.0-0.5) mg/dL AST (5-31) U/L ALT (0-31) U/L Alkaline Phosphatase (39-117) U/L Ammonia 112 H (13-55) umol/L Total Protein (6.5-8.0) g/dL Albumin (3.5-5.0) g/dL Lipase (8-78) U/L Stool Occult Blood NEGATIVE (NEGATIVE) Ethyl Alcohol mg/dL COVID-19 (JOHN) Negative (Negative) COVID-19 Clin Com See Note Blood Type Antibody Screen Crossmatch (AHG) 09/15/20 Range/Units 06:56 WBC 4.2 L (4.8-10.8) X10*3/uL RBC 2.92 L D (4.20-5.50) X10*6/uL Hgb 8.5 L D (12.0-16.0) g/dl Hct 27.7 L D (37-47) % MCV 94.9 (80-98) fL MCH 29.1 (27.0-33.0) pg MCHC 30.7 L (31.0-35.0) g/dl RDW 17.9 H (11.0-16.0) % Plt Count 44 L D (160-400) X10*3/uL MPV 8.7 L (9.4-12.3) fL Immature Gran % (Auto) 0.5 H (0.0-0.4) % Neut % (Auto) 45.0 (45-73) % Lymph % (Auto) 44.2 H (20-40) % Lawrence % (Auto) 7.9 (2-11) % Eos % (Auto) 1.4 (0-4) % Baso % (Auto) 1.0 (0-2) % Lymph # (Auto) 1.8 (1.2-4.9) X10*3/uL Lawrence # (Auto) 0.3 (0.1-1.2) X10*3/uL Eos # (Auto) 0.1 (0.0-0.4) X10*3/uL Baso # (Auto) 0.0 (0.0-0.2) X10*3/uL Abs Immat Gran (auto) 0.02 (0.00-0.03) X10*3/uL Absolute Neuts (auto) 1.9 L (2.0-8.3) X10*3/uL Absolute Nucleated RBC 0.000 (0.0-0.012) X10*3/uL Nucleated RBC % (auto) 0.0 (0.0-0.2) /100WBC Hold Purple Top PT (10.8-13.0) SEC INR (0.9-1.1) Sodium (135-145) mmol/L Potassium (3.3-5.1) mmol/L Chloride (96-108) mmol/L Carbon Dioxide (22-29) mmol/L Anion Gap (12-20) BUN (9-16) mg/dL Creatinine (0.5-1.4) mg/dL Estim Creat Clear Calc Estimated GFR Random Glucose (60-115) mg/dL Calcium (8.4-10.2) mg/dL Total Bilirubin (0.0-1.0) mg/dL Direct Bilirubin (0.0-0.5) mg/dL AST (5-31) U/L ALT (0-31) U/L Alkaline Phosphatase (39-117) U/L Ammonia (13-55) umol/L Total Protein (6.5-8.0) g/dL Albumin (3.5-5.0) g/dL Lipase (8-78) U/L Stool Occult Blood (NEGATIVE) Ethyl Alcohol mg/dL COVID-19 (JOHN) (Negative) COVID-19 Clin Com Blood Type Antibody Screen Crossmatch ([facility]) <Karen Lui MD - Last Filed: 09/15/20 07:55> Discharge Plan Discharge Clinical Impression: Alcoholic intoxication, Anemia, chronic disease <NEFTALY Agarwal - Last Filed: 09/15/20 04:06> Prescriptions: No Action ciprofloxacin HCl 500 mg tablet 500 mg PO Q12H 5 Days Qty: 10 RF: 0 <NEFTALY Agarwal - Last Filed: 09/15/20 04:06>
[2020-09-14 22:13] LABS: OBS Int Ctl Valid YES; OBS1 NEGATIVE (NEGATIVE)
[2020-09-14 23:59] VITALS: BP 114/65; PULSE 92; RESP 12; TEMP 36.9
[2020-09-15] VITALS (13 sets, daily range): BP systolic 108–136; BP diastolic 56–78; PULSE 72–102; RESP 12–20; TEMP 36.4–37; O2SAT 97–99
[2020-09-15 01:27] LABS: COVID-19 Test Negative (Negative)
[2020-09-15 04:59] LABS: Ammonia 112 umol/L (13-55)
[2020-09-15 07:03] LABS: MANUAL DIFF FLAG NO
[2020-09-15 07:04] LABS: Eosinophils Absolute Auto 0.1 X10*3/uL (0.0-0.4); Eosinophils Percent Auto 1.4 % (0-4); Hematocrit 27.7 % (37-47); Hemoglobin 8.5 g/dl (12.0-16.0); Imm Gran Abs Auto 0.02 X10*3/uL (0.00-0.03); Imm Gran Pct Auto 0.5 % (0.0-0.4); Lymphocytes Absolute Auto 1.8 X10*3/uL (1.2-4.9); Lymphocytes Percent Auto 44.2 % (20-40); Mean Corpuscular HGB Conc 30.7 g/dl (31.0-35.0); Mean Corpuscular Hemoglobin 29.1 pg (27.0-33.0); Mean Corpuscular Volume 94.9 fL (80-98); Mean Platelet Volume 8.7 fL (9.4-12.3); Monocytes Absolute Auto 0.3 X10*3/uL (0.1-1.2); Monocytes Percent Auto 7.9 % (2-11); Neutrophils Absolute Auto 1.9 X10*3/uL (2.0-8.3); Red Blood Count 2.92 X10*6/uL (4.20-5.50); Red Cell Distribution Width 17.9 % (11.0-16.0); White Blood Count 4.2 X10*3/uL (4.8-10.8)
[2020-09-15 07:06] LABS: Platelet Count 44 X10*3/uL (160-400)
--- NOTE | 2020-09-15 07:37 | PC.NURSE ---
Patient awake, alert, and oriented. Skin jaundice, warm, dry. Bruising to left eye and left side of face, and right upper arm. Patient ambulated with 1 assist by this RN. Patient ambulates with slow steady gait when using 1 assist, patient unsteady without assist. patient reports she usually uses a walker or w/c. Dr. Lui to bedside to talk about admission. Patient refusing admission, states she cannot stay because she is moving today and has too much to do. Patient states she does not have a ride home and would need a taxi. Patient agreeable to repeat ETOH level.
[2020-09-15] MEDS: Lactulose 20 GM/30 ML SOLUTION 30 GM PO ×3 (08:13→21:29)
--- NOTE | 2020-09-15 08:42 | PC.NURSE ---
Patient is now agreeable to admission
--- NOTE | 2020-09-15 09:01 | HE.PHANOTE ---
Med rec completed Pt states she does not take spironolatone nor lactulose any more. She also states she has not yet started the ciprofloxacin to tx UTI
--- NOTE | 2020-09-15 10:08 | P.HPHOSP_ITS ---
History of Present Illness Date of Service: 09/15/20 Chief Complaint: Falll, alcohol intoxication 39 year female with cirrhosis of liver, alcohol dependency, drinking since age 9, she claims to drink 2 beers a day. She presents to ED falling a fall that is likely alcohol related and was noted in the ED to be unsteady with some confusion and high ammonia consistent with hepatic encephalopathy. She is noted to be significantly more anemic than usual with hemoglobin of 6, however negative occult blood. She is transfused 1 unit of RBC and Hemoglobin is better. Her LFTs are high, including bili and INR of 2, platlets of 44. Alcohol level was over 300. Was seen in ED under similar circumstance on 09/08 Review of Systems Review of Systems: Gen: no fever Resp: no sob, no cough CV: no chest, no ALMAGUER, no leg edema GI: No n/v, no abd pain Neuro: No confusion at the moment, no tremors Yes all other systems are reviewed and are negative [facility] Medical History Alcohol dependence Alcoholic cirrhosis Bronchial asthma DVT (deep vein thrombosis) in H/O varicose veins HTN (hypertension) Nasal bleeding Pancytopenia Family History Father Pulmonary emboli Brother Throat cancer Pertinent family history: Mother of alcohol related cirrhosis Social History (Updated 09/15/20 @ 10:15 by Derek Lee MD) Alcohol intake: current Alcohol type: beer Advance Directives: No Advance Directives Information Provided: No Patient : No Meds Allergies Allergy/AdvReac Type Severity Reaction Status Date / Time No Known Allergies Allergy Verified 09/08/20 00:04 Active Medications: Current Medications Generic Name Dose Route Start Last Admin Trade Name Freq PRN Reason Stop Dose Admin Lactulose 30 gm 09/15/20 09:00 09/15/20 08:13 Lactulose 20 Gm/30 Ml Solution PO 30 gm TID JEFFERSON Administration Pharmacy Consult 1 each 09/15/20 08:29 Consult Rx Perform Med Rec MISCELLANE ONCE PRN Consult order Home Medications Medication Instructions Recorded Confirmed Last Taken Type Iron Supplement 1 tab PO DAILY 09/15/20 09/15/20 09/13/20 History albuterol sulfate [ProAir HFA] 2 puff PO Q4-6H PRN 09/15/20 09/15/20 Unknown History cholecalciferol (vitamin D3) 1 cap PO DAILY 09/15/20 09/15/20 09/13/20 History folic acid 1 tab PO DAILY 09/15/20 09/15/20 09/13/20 History gabapentin 1 cap PO TID 09/15/20 09/15/20 09/13/20 History lidocaine 1 - 2 patch TOPICAL DAILY PRN 09/15/20 09/15/20 Unknown History melatonin 1 tab PO BEDTIME 09/15/20 09/15/20 09/13/20 History multivitamin with minerals 1 tab PO DAILY 09/15/20 09/15/20 09/13/20 History omeprazole 1 cap PO BIDAC 09/15/20 09/15/20 09/13/20 History thiamine HCl (vitamin B1) 1 tab PO DAILY 09/15/20 09/15/20 09/13/20 History Physical Exam Vital Signs and Narrative: Vital Signs: Last Vital Signs Temp 98.5 F 09/15/20 06:14 Pulse 78 09/15/20 07:32 Resp 16 09/15/20 07:32 BP 131/78 09/15/20 07:32 Pulse Ox 98 09/15/20 07:32 Body Mass Index 23.5 Const: Other: Constitutional Awake and Alert, No apparent distress HEENT--sclera icteris, left perio orbital echymosis, says it happened last week from fall Neck Supple, No lymphadenopathy Cardiovascular RRR, No M/R/G, S1 S2, No S3 S4, No pedal edema Respiratory Lungs clear, No respiratory distress Gastrointestinal Non tender, Non-distended Skin No rash Neurological Alert & oriented x3, unsteady gait Psychological Appropriate affect Results Labs CBC and Chem 7: 09/15/20 06:56 09/14/20 20:58 Labs: Laboratory Results - last 24 hr 09/14/20 09/14/20 09/14/20 20:58 20:58 20:58 MCV 97.4 MCH 28.6 MCHC 29.4 L RDW 17.7 H Plt Count 72 L D MPV 8.3 L Immature Gran % (Auto) 0.6 H Neut % (Auto) 49.0 Lymph % (Auto) 40.5 H [place] % (Auto) 7.5 Eos % (Auto) 1.5 Baso % (Auto) 0.9 Lymph # (Auto) 1.4 [place] # (Auto) 0.3 Eos # (Auto) 0.1 Baso # (Auto) 0.0 Abs Immat Gran (auto) 0.02 Absolute Neuts (auto) 1.6 L Absolute Nucleated RBC 0.000 Nucleated RBC % (auto) 0.0 Hold Purple Top SEE NOTE PT 24.6 H INR 2.1 H Anion Gap Estim Creat Clear Calc Estimated GFR Random Glucose Calcium Total Bilirubin Direct Bilirubin AST ALT Alkaline Phosphatase Ammonia Total Protein Albumin Lipase Stool Occult Blood Ethyl Alcohol COVID-19 (JOHN) COVID-19 [employer] [facility] Blood Type Antibody Screen Crossmatch ([facility]) 09/14/20 09/14/20 09/14/20 20:58 20:58 21:55 MCV MCH MCHC RDW Plt Count MPV Immature Gran % (Auto) Neut % (Auto) Lymph % (Auto) [place] % (Auto) Eos % (Auto) Baso % (Auto) Lymph # (Auto) Oxford # (Auto) Eos # (Auto) Baso # (Auto) Abs Immat Gran (auto) Absolute Neuts (auto) Absolute Nucleated RBC Nucleated RBC % (auto) Hold Purple Top PT INR Anion Gap 14 Estim Creat Clear Calc 124.1 Estimated GFR > 60 Random Glucose 114 Calcium 7.2 L Total Bilirubin 5.9 H Direct Bilirubin 3.9 H AST 88 H ALT 19 Alkaline Phosphatase 175 H Ammonia Total Protein 7.2 Albumin 2.6 L Lipase 68 Stool Occult Blood Ethyl Alcohol 397 H* COVID-19 (JOHN) COVID-19 [employer] [facility] Blood Type A Positive Antibody Screen NEGATIVE Crossmatch ([facility]) See Detail 09/14/20 09/15/20 09/15/20 21:55 01:04 04:37 MCV MCH MCHC RDW Plt Count MPV Immature Gran % (Auto) Neut % (Auto) Lymph % (Auto) [place] % (Auto) Eos % (Auto) Baso % (Auto) Lymph # (Auto) Oxford # (Auto) Eos # (Auto) Baso # (Auto) Abs Immat Gran (auto) Absolute Neuts (auto) Absolute Nucleated RBC Nucleated RBC % (auto) Hold Purple Top PT INR Anion Gap Estim Creat Clear Calc Estimated GFR Random Glucose Calcium Total Bilirubin Direct Bilirubin AST ALT Alkaline Phosphatase Ammonia 112 H Total Protein Albumin Lipase Stool Occult Blood NEGATIVE Ethyl Alcohol COVID-19 (JOHN) Negative COVID-19 Clin Com See Note Blood Type Antibody Screen Crossmatch ([facility]) 09/15/20 06:56 MCV 94.9 MCH 29.1 MCHC 30.7 L RDW 17.9 H Plt Count 44 L D MPV 8.7 L Immature Gran % (Auto) 0.5 H Neut % (Auto) 45.0 Lymph % (Auto) 44.2 H [place] % (Auto) 7.9 Eos % (Auto) 1.4 Baso % (Auto) 1.0 Lymph # (Auto) 1.8 Oxford # (Auto) 0.3 Eos # (Auto) 0.1 Baso # (Auto) 0.0 Abs Immat Gran (auto) 0.02 Absolute Neuts (auto) 1.9 L Absolute Nucleated RBC 0.000 Nucleated RBC % (auto) 0.0 Hold Purple Top PT INR Anion Gap Estim Creat Clear Calc Estimated GFR Random Glucose Calcium Total Bilirubin Direct Bilirubin AST ALT Alkaline Phosphatase Ammonia Total Protein Albumin Lipase Stool Occult Blood Ethyl Alcohol COVID-19 (JOHN) COVID-19 Clin Com Blood Type Antibody Screen Crossmatch ([facility]) Imaging Radiologist's Impressions: Impressions Cervical Spine CT 09/14/20 21:26 IMPRESSION: No acute intracranial process seen. No maxillofacial, nasal or mandibular fracture. Mild straightening of cervical lordosis without any acute fracture or dislocation. There are degenerative disc changes and spondylosis at C5-C6 and C6-C7 disc levels. Face CT 09/14/20 21:26 IMPRESSION: No acute intracranial process seen. No maxillofacial, nasal or mandibular fracture. Mild straightening of cervical lordosis without any acute fracture or dislocation. There are degenerative disc changes and spondylosis at C5-C6 and C6-C7 disc levels. Head CT 09/14/20 21:26 IMPRESSION: No acute intracranial process seen. No maxillofacial, nasal or mandibular fracture. Mild straightening of cervical lordosis without any acute fracture or dislocation. There are degenerative disc changes and spondylosis at C5-C6 and C6-C7 disc levels. Assessment and Plan (1) Alcoholic intoxication: Status: Acute (2) Anemia, chronic disease: Status: Acute (3) Acute hepatic encephalopathy: Status: Acute (4) Alcohol dependence: Status: Acute (5) Pancytopenia: Status: Acute (6) Alcoholic cirrhosis: Status: Acute 39 year female with alcoholic liver cirrhosis here alcohol intoxication and found to be anemic, hepatic encephalpathyic, pancytopenic, and coagulopathic. 1/Anemia, acute on chronic likely from alcohol liver disease, chronic slow GI bleed cannot be excluded at this time. She has been transfused 1 units with good effect. Will get GI to see her to assess for need for EGD. Will treat with PPI as well and Vitamin K for high INR 2/Alcohol Dependence and very high risk for withdrawal-Start Phenobarbital, folic acid and thiamine, CARE team consult before discharge 3/Pancytopenia d/t cirrhosis, monitor 4/Hepatic Encephalopathy--she is more lucid this morning from what is previously documented, daily lactulose 5/Fall, unsteady gait--d/t aclohol--PT eval before discharge 6/Coagulopathy with INR 2, give vitamin k 10 daily x 3 days DVT prophylasix compression device
[2020-09-15] MEDS: Pantoprazole Sodium 40 MG/10 ML VIAL IVPUSH ×2 (11:12→21:29)
[2020-09-15] MEDS: PHENobarbitaL sodium 130 MG/ML VIAL 197 MG IM (11:12)
[2020-09-15] MEDS: Folic Acid 1 MG TABLET PO (11:12)
[2020-09-15] MEDS: Thiamine HCL 100 MG TABLET PO (11:12)
[2020-09-15] MEDS: Phytonadione (Vit K1) Oral 10 MG/ML AMPUL PO (11:21)
[2020-09-15] MEDS: Dextrose 5 % and 0.45 % NaCl 1,000 ML 100 ML IVCONT ×2 (12:30→22:08)
[2020-09-15] MEDS: PHENobarbitaL sodium 130 MG/ML VIAL 148 MG IM ×2 (14:11→17:27)
[2020-09-15] MEDS: PHENobarbitaL 15 MG TABLET 45 MG PO (21:29)
[2020-09-16 07:20] LABS: Hematocrit 25.3 % (37-47); Hemoglobin 7.9 g/dl (12.0-16.0); Mean Corpuscular HGB Conc 31.2 g/dl (31.0-35.0); Mean Platelet Volume 8.4 fL (9.4-12.3); Red Blood Count 2.72 X10*6/uL (4.20-5.50); Red Cell Distribution Width 17.5 % (11.0-16.0); White Blood Count 3.1 X10*3/uL (4.8-10.8)
[2020-09-16 07:31] LABS: Platelet Count 34 X10*3/uL (160-400)
[2020-09-16 07:57] LABS: Anion Gap 9 (12-20); Blood Urea Nitrogen 5 mg/dL (9-16); Calcium 7.2 mg/dL (8.4-10.2); Carbon Dioxide 23 mmol/L (22-29); Chloride 103 mmol/L (96-108); Creatinine Clr Calc Pharmacy 135.8; Estimated Glomerular Filt Rate > 60; Glucose Random 90 mg/dL (60-115); Potassium 3.4 mmol/L (3.3-5.1); Sodium 132 mmol/L (135-145)
[2020-09-16 08:00] VITALS: BP 150/81; PULSE 60; RESP 16; TEMP 37; O2SAT 98
[2020-09-16] MEDS: Dextrose 5 % and 0.45 % NaCl 1,000 ML 100 ML IVCONT ×2 (08:00→20:21)
--- NOTE | 2020-09-16 09:05 | P.CDIC_ITS ---
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 Please clarify the information noted below in your progress notes and discharge summary. 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 Chronic slow GI bleed cannot be excluded, GI to see and assess for need of EGD. Transfuse 2 units PRBC HGB 6.7 L HCT 22.8 L post transfusion 8.5/27.7 CDS: Maura Styles CCS, CDIS Contact Number: [phone] Please Review the information above and exercise your independent professional judgment in responding to the query. If you concur, pleas document in the PROGRESS NOTES and DISCHARGE SUMMARY. If you do not agree with the query, please document in the query above. THIS QUERY IS PART OF THE PERMANENT MEDICAL RECORD
[2020-09-16] MEDS: PHENobarbitaL 15 MG TABLET 45 MG PO ×2 (09:20→20:22)
[2020-09-16] MEDS: Folic Acid 1 MG TABLET PO (09:21)
[2020-09-16] MEDS: Pantoprazole Sodium 40 MG/10 ML VIAL IVPUSH ×2 (09:21→20:24)
[2020-09-16] MEDS: Lactulose 20 GM/30 ML SOLUTION 30 GM PO ×3 (09:23→20:23)
[2020-09-16] MEDS: Phytonadione (Vit K1) Oral 10 MG/ML AMPUL PO (09:25)
--- NOTE | 2020-09-16 09:48 | MHC.CM.PN ---
CM MET WITH PT WHO REPORTS SHE IS LIVING IN A HOTEL WITH HER S/O / HCP BUT HAS AN APARTMENT ON [facility] SHE WAS SUPPOSED TO MOVE INTO [facility]. PT REPORTS SHE DOES NOT HAVE ANY SERVICES BUT WAS SUPPOSED TO MEET WITH A INTERIOR SURFACE INSULATION WORKER AT [facility] BUT MISSED THE APPOINTMENT DUE TO ADMISSION. PT REPORTS SHE USES A WHEEL CHAIR PRIMARILY BUT CAN USE A WALKER. PT REPORTS HER PCP IS JESUS FARAH AT [facility]. PT IS INTERESTED IN SEEING CARE TEAM OR INTERIOR SURFACE INSULATION WORKER CURRENT DC PLAN IS TO RETURN TO THE [facility] 6 VIA CHAIR VAN
[2020-09-16 09:53] LABS: Ammonia 80 umol/L (13-55)
[2020-09-16] MEDS: Thiamine HCL 100 MG TABLET PO (10:26)
--- NOTE | 2020-09-16 11:11 | P.PNIM_ITS ---
Subjective Subjective Date of Service: 09/16/20 Interval History: Seen in f/u alcohol intoxication, anemia, and hepatic encephalopath--no confusion today, weak and using walker Review of Systems Gen: no fever Resp: no sob, no cough CV: no chest, no ALMAGUER, no leg edema GI: No n/v, no abd pain Neuro: No confusion Physical Exam Vital Signs: Vital Signs: Last Vital Signs Temp 98.6 F 09/16/20 08:00 Pulse 60 09/16/20 08:00 Resp 16 09/16/20 08:00 BP 150/81 H 09/16/20 08:00 Pulse Ox 98 09/16/20 08:00 Body Mass Index 23.5 General: AO X 3, no acute distress Resp: CTA bilateral CVS: S1,S2,RRR GI: +BS, NT, no distention Skin: No rash, periorbital echymosis Neuro: motor grossly intact Psych: appropriate affect Objective Data Current Medications Generic Name Dose Route Start Last Admin Trade Name Freq PRN Reason Stop Dose Admin Folic Acid 1 mg 09/15/20 10:30 09/16/20 09:21 Folic Acid 1 Mg Tablet PO 1 mg DAILY JEFFERSON Administration Dextrose/Sodium Chloride 1,000 mls @ 100 mls/hr 09/15/20 13:00 09/16/20 08:00 D51/2ns IVCONT 100 mls/hr .Q10H JEFFERSON Administration Lactulose 30 gm 09/15/20 09:00 09/16/20 09:23 Lactulose 20 Gm/30 Ml Solution PO 20 gm TID JEFFERSON Administration Medication 1 each 09/15/20 10:44 No Benzodiazepines MISCELLANE DAILY JEFFERSON Pantoprazole Sodium 40 mg 09/15/20 10:40 09/16/20 09:21 Pantoprazole Sodium 40 Mg/10 Ml Vial IVPUSH 09/17/20 10:39 40 mg BID JEFFERSON Administration Pharmacy Consult 1 each 09/15/20 08:29 Consult Rx Perform Med Rec MISCELLANE ONCE PRN Consult order Pharmacy Consult 1 each 09/15/20 10:26 Consult Rx Etoh Phenob Dosing MISCELLANE ONCE PRN Consult order Protocol Phenobarbital 45 mg 09/15/20 21:00 09/16/20 09:20 Phenobarbital 15 Mg Tablet PO 09/17/20 09:01 45 mg BID JEFFERSON Administration Protocol Phenobarbital 30 mg 09/17/20 21:00 Phenobarbital 30 Mg Tablet PO 09/19/20 09:01 BID ON LICENSE OF [facility] Protocol Phenobarbital 30 mg 09/20/20 09:00 Phenobarbital 30 Mg Tablet PO 09/21/20 09:01 DAILY ON LICENSE OF [facility] Protocol Phytonadione 10 mg 09/15/20 10:45 09/16/20 09:25 Phytonadione (Vit K1) Oral 10 Mg/Ml Ampul PO 09/17/20 09:01 10 mg DAILY JEFFERSON Administration Sodium Chloride 3 ml 09/15/20 16:00 09/16/20 06:56 0.9 % Sodium Chloride Flush 3 Ml Syringe IVFLUSH Not Given QSHIFT ON LICENSE OF [facility] Thiamine HCl 100 mg 09/15/20 10:30 09/16/20 10:26 Thiamine Hcl 100 Mg Tablet PO 09/17/20 09:01 100 mg DAILY JEFFERSON Administration Labs CBC & Chem 7: 09/16/20 06:35 09/16/20 06:35 Assessment and Plan (1) Alcoholic intoxication: Status: Acute (2) Anemia, chronic disease: Status: Acute (3) Acute hepatic encephalopathy: Status: Acute (4) Alcohol dependence: Status: Acute (5) Pancytopenia: Status: Acute (6) Alcoholic cirrhosis: Status: Acute Assessment and Plan: 39 year female with alcoholic liver cirrhosis here alcohol intoxication and found to be anemic, hepatic encephalpathyic, pancytopenic, and coagulopathic. 1/Anemia, acute on chronic likely from alcohol liver disease, chronic slow GI bleed cannot be excluded at this time. She has been transfused 1 units with good effect. H/H is better. GI to see her to assess for need for EGD. 2/Alcohol Dependence- and very high risk for withdrawal--continue Phenobarbital, folic acid and thiamine, CARE team consult before discharge 3/Pancytopenia d/t cirrhosis, monitor 4/Hepatic Encephalopathy--she is more lucid this morning from what is previously documented, daily lactulose, ammonia level is down 5/Fall, unsteady gait--d/t aclohol--PT eval before discharge 6/Coagulopathy with INR 2, give vitamin k 10 daily x 3 days DVT prophylasix compression device
[2020-09-16 11:49] VITALS: BP 147/81; PULSE 91; RESP 16; TEMP 36.7; O2SAT 99
--- NOTE | 2020-09-16 12:42 | PM.GICN ---
History of Present Illness Data of Consult Service Date: 09/16/20 Requesting physician: Derek Ulloa Primary Care Provider: Unknown Physician HPI Reason for consult: Hepatic encephalopathy, anemia 39-year-old female presented to [facility] ED on 09/14/2020 with confusion: Patient presents to ED for alcohol on breath. Patient found in a park drinking. Patient states she fell 3 days ago which is why she has bruising on left side of face. Patient denies any abdominal pain . Pt has a hx of ETOH abuse since age 9 and claims to drink 2 beers a day. Pt was noted in the ED to be unsteady with some confusion and high ammonia consistent with hepatic encephalopathy. Labs showed H & H of 6.7 and 22.8 (decreased from 7.8 and 25.3 on 08/04/2020) Stool occult blood was negative. Pt was transfused 1 unit of PRBC with improvement in HCT H to 8.9 in 27.2. Her LFTs were elevated (TB of 5.9) and INR of 2.1, platlets of 72 K and decreased to 34K today. Alcohol level was 397. Patient was admitted and placed on CIWA protocol and treated with Vitamin K. Patient denies symptoms of heartburn, dysphagia, nausea, vomiting, change in appetite or weight. Denies recent change in bowel habits, constipation, diarrhea, black stools or rectal bleeding. Patient ambulates with a wheel chair and walker due to foot drop. Denies being on chronic anticoagulation. IMAGING STUDIES: 09/14/[address] SCAN SHOWED: No acute intracranial process seen. No maxillofacial, nasal or mandibular fracture. Mild straightening of cervical lordosis without any acute fracture or dislocation. There are degenerative disc changes and spondylosis at C5-C6 and C6-C7 disc levels. 09/2019 ABDOMINAL ULTRASOUND SHOWED: Mild hepatomegaly with hepatic steatosis and lobulated margins but no focal lesion or intrahepatic ductal dilation. Cholelithiasis with mild wall thickness. There is extrarenal right kidney pelvis. ENDOSCOPIC STUDIES: 02/2018 EGD WAS PERFORMED BY DR. DEJESUS AND SHOWED: 1. 0 TO 1+ ESOPHAGEAL VARICES, PORTAL HYPERTENSIVE GASTROPATHY, SMALL GASTRIC ULCER AND SMALL HIATAL HERNIA PAST GI HISTORY BY REVIEW OF MEDICAL RECORDS: 12/2017 INITIAL GI CLINIC VISIT: [address] Abdul for cirrhosis related to ETOH use x 26 yrs. She is accompanied by a friend. Labs in October, showed hct of 40% and plt count of 70K. INR was 1.1, TB of 1.3, AST 126, ALT 57, AP 124, albumin 4.8, Ferritin [address] on 12/14/17 showed: LIVER, GALLBLADDER, AND BILIARY TREE: The liver is diffusely heterogeneous in attenuation and there is evidence of mild, diffuse intrahepatic biliary duct dilatation. The surface contour of the liver demonstrates a micronodular pattern, findings are consistent with cirrhosis. There is no discrete focal mass present. The gallbladder is well distended, there are a few tiny, layering gallstones present. No gallbladder wall thickening or pericholecystic fluid is seen. SPLEEN: The spleen is enlarged measuring 14 cm in diameter, previous of 2013 measured 12 cm. 1. Cirrhotic appearing liver. No focal mass is seen. There is associated splenomegaly and the portal vein is enlarged, consistent with portal hypertension. 2. Cholelithiasis. TODAY'S VISIT: Was diagnosed with liver problems a year ago when her abdomen swelled up - she was told she had Fatty liver. Was hospitalized at [facility] in [place] for 4 days. Plan was to remove the GB and it was not removed since she had 2 gallstones which were not blocking the liver. Notes intermittent RUQ pain - sharp pain followed by throbbing sensation. Pain is daily and lasts 1-2 hours. Has a decreased appetite and eats once a day. Takes Omeprazole once a day for heartburn. Thrown up in the am and unable to keep water down sometimes. Small amount of blood in the vomitus after vomiting a few times. unintentional weight loss of 40 lbs - from 200 to 159 lbs. Has 2-3 loose BMs a day without black stools or blood in the stools. Drinks 10-12 beers a day which stops her shaking. Has to have a beer in the morning. Unable to go a day without a beer. Medications given by her PCP to help her stop drinking did not work. PAST GI HISTORY BY REVIEW OF MEDICAL RECORDS: Pt was seen by Dr Abdul on 12/06/17 for gallstones: Assessments 1. Alcoholic cirrhosis of liver - K70.30 (Primary) 2. Gallstone - K80.20 3. ETOH abuse - F10.10 She has an US done last October 2017 showing gallstones without cholecystitis. However, she has apparent significant liver disease with her active alcoholic abuse. Her liver edge is palpable about 5 cm from the rib cage and is tender to touch. She still drinks at least a six pack of beer everyday, and she says had a few drinks already today. I do not feel that with her active liver disease the it is safe to do cholecystectomy at this time. I counseled her on the importance of cessation of her alcohol intake. I am going to refer her to GI for her liver disease. I will order for a CT scan to image her liver and check for signs of portal hypertension. I can see her in the office in a few months to see how she is dong. She is to provide a copy of her workup in CT (EGD, colonoscopy) from last year as well. Treatment 1. Alcoholic cirrhosis of liver IMAGING: CT ABD AND PELVIS WITH CONTRAST Notes: chronic liver disease, ? portal HTN. Assessments 1. Alcoholic cirrhosis of liver without ascites - K70.30 (Primary) 2. Gallstones - K80.20 Treatment 1. Alcoholic cirrhosis of liver without ascites Notes: 37 YF with ESLD due to ongoing ETOH use since age 11 yrs. AST is 2 times > than ALT suggestive of alcoholic liver disease. Her liver disease is complicated by splenomegaly with portal hypertension and thrombocytopenia. No ascites noted on recent CT scan. I will review her last EGD report from [facility] to check if she had esophageal varices. Course and potential complications of cirrhosis was reviewed with the patient. She is interested in quitiing and would like assitance from her PCP. She states she missed her last appointment with Dr Barbosa and would like to re-schedule her appointment to discuss ETOH rehab. Please schedule appointment with Dr Barbosa in 1-2 weeks. Please obtain copy of EGD report and discharge summary from [facility]. 2. Gallstones Notes: Recent CT scan showed a few tiny gallstones with diffuse mild intra-hepatic ductal dilation. Her abdominal pain is likely from hepatomegaly and gallstones. Biliary ductal dilation is likely from ampulary stenosis related to GB sludge. Patient was advised to FU in 6 weeks. If repeat LFTs on FU are suggestive of biliary obstruction, she will need an ERCP. Review of Systems Constitutional: Constitutional: Reports fatigue, Denies fever(s), Denies headache(s) and Denies weight loss Eyes: Eyes: Denies eye discharge and Denies irritation ENT: Reports Normal hearing present, Denies dysphagia, Denies dizziness and Denies headache(s) Cardiovascular: Cardiovascular: Denies chest pain, Denies leg edema and Denies dyspnea on exertion Respiratory: Respiratory: Denies cough and Denies dyspnea on exertion Gastrointestinal: Gastrointestinal: Denies abdominal pain, Denies change in bowel habits, Denies dysphagia and Denies heartburn Genitourinary: Genitourinary: Denies difficulty voiding and Denies dysuria Musculoskeletal: Musculoskeletal: Denies back pain and Denies arthralgias Integumentary/Breasts: Skin/Breast: Denies pruritus, Denies rash and Denies jaundice Neurologic: Reports Normal hearing present, Denies Abnormal speech present, Denies dizziness, Denies headache(s), Reports focal weakness (foot drop) and Denies seizure-like activity Psychiatric: Psychiatric: Denies anxiety, Denies depression and Denies panic attacks Endocrine: Endocrine: Denies cold intolerance, Reports fatigue, Denies flushing and Denies heat intolerance Hematologic/Lymphatic: Hematologic/Lymphatic: Reports easy bleeding and Reports easy bruising PMFSH Past Medical History Medical History Alcohol dependence Alcoholic cirrhosis Anemia, chronic disease Bronchial asthma DVT (deep vein thrombosis) in H/O varicose veins HTN (hypertension) Nasal bleeding Pancytopenia Family History Family History Father Pulmonary emboli Brother Throat cancer Social History Social History Household Members: Significant Other Housing: Other Housing Other:: half-way/motel 6 Do you presently have visiting nurse or other home services: No Alcohol intake: current Alcohol intake frequency: 0-2 drinks per day Alcohol type: beer Patient Tobacco Use Status: Never used Tobacco Second Hand Smoke Exposure: No Use of substances other than those prescribed or required for medical reasons: Unknown Advance Directives: No Advance Directives Information Provided: No Patient : No service: No Current occupational status: unemployed Meds Allergies Allergy/AdvReac Type Severity Reaction Status Date / Time No Known Allergies Allergy Verified 09/08/20 00:04 Active Medications: Current Medications Generic Name Dose Route Start Last Admin Trade Name Freq PRN Reason Stop Dose Admin Folic Acid 1 mg 09/15/20 10:30 09/16/20 09:21 Folic Acid 1 Mg Tablet PO 1 mg DAILY [facility] Administration Dextrose/Sodium Chloride 1,000 mls @ 100 mls/hr 09/15/20 13:00 09/16/20 08:00 D51/2ns IVCONT 100 mls/hr .Q10H [facility] Administration Lactulose 30 gm 09/15/20 09:00 09/16/20 09:23 Lactulose 20 Gm/30 Ml Solution PO 20 gm TID [facility] Administration Medication 1 each 09/15/20 10:44 No Benzodiazepines MISCELLANE DAILY [facility] Pantoprazole Sodium 40 mg 09/15/20 10:40 09/16/20 09:21 Pantoprazole Sodium 40 Mg/10 Ml Vial IVPUSH 09/17/20 10:39 40 mg BID [facility] Administration Pharmacy Consult 1 each 09/15/20 08:29 Consult Rx Perform Med Rec MISCELLANE ONCE PRN Consult order Pharmacy Consult 1 each 09/15/20 10:26 Consult Rx Etoh Phenob Dosing MISCELLANE ONCE PRN Consult order Protocol Phenobarbital 45 mg 09/15/20 21:00 09/16/20 09:20 Phenobarbital 15 Mg Tablet PO 09/17/20 09:01 45 mg BID [facility] Administration Protocol Phenobarbital 30 mg 09/17/20 21:00 Phenobarbital 30 Mg Tablet PO 09/19/20 09:01 BID [facility] Protocol Phenobarbital 30 mg 09/20/20 09:00 Phenobarbital 30 Mg Tablet PO 09/21/20 09:01 DAILY [facility] Protocol Phytonadione 10 mg 09/15/20 10:45 09/16/20 09:25 Phytonadione (Vit K1) Oral 10 Mg/Ml Ampul PO 09/17/20 09:01 10 mg DAILY [facility] Administration Sodium Chloride 3 ml 09/15/20 16:00 09/16/20 06:56 0.9 % Sodium Chloride Flush 3 Ml Syringe IVFLUSH Not Given QSHIFT [facility] Thiamine HCl 100 mg 09/15/20 10:30 09/16/20 10:26 Thiamine Hcl 100 Mg Tablet PO 09/17/20 09:01 100 mg DAILY [facility] Administration Home Medications Medication Instructions Recorded Confirmed Last Taken Type Iron Supplement 1 tab PO DAILY 09/15/20 09/15/20 09/13/20 History albuterol sulfate [ProAir HFA] 2 puff PO Q4-6H PRN 09/15/20 09/15/20 Unknown History cholecalciferol (vitamin D3) 1 cap PO DAILY 09/15/20 09/15/20 09/13/20 History folic acid 1 tab PO DAILY 09/15/20 09/15/20 09/13/20 History gabapentin 1 cap PO TID 09/15/20 09/15/20 09/13/20 History lidocaine 1 - 2 patch TOPICAL DAILY PRN 09/15/20 09/15/20 Unknown History melatonin 1 tab PO BEDTIME 09/15/20 09/15/20 09/13/20 History multivitamin with minerals 1 tab PO DAILY 09/15/20 09/15/20 09/13/20 History omeprazole 1 cap PO BIDAC 09/15/20 09/15/20 09/13/20 History thiamine HCl (vitamin B1) 1 tab PO DAILY 09/15/20 09/15/20 09/13/20 History Physical Exam Vital Signs: Vital Signs: Last Vital Signs Temp 98.0 F 09/16/20 11:49 Pulse 91 09/16/20 11:49 Resp 16 09/16/20 11:49 BP 147/81 H 09/16/20 11:49 Pulse Ox 99 09/16/20 11:49 Body Mass Index 23.5 Const: General: no acute distress, ill appearing and lethargic Nutritional Appearance: average body habitus Orientation/consciousness: oriented to person, oriented to place and lethargic Limitations: no limitations HENMT: Head: Yes normal to inspection Ears: hearing grossly normal bilaterally Mouth: Normal oral and palatal mucosa present Eyes: Sclerae: scleral abnormal (Jaundice) Pupils: Equal, round and reactive pupils present Neck: Neck: Yes normal visual inspection Chest: Chest palpation & inspection: normal inspection of the chest Resp: Effort & Inspection: normal respiratory effort Auscultation: clear to auscultation bilaterally Cardio: Palpation: normal PMI Rate: regular rate Rhythm: regular rhythm Heart sounds: S1 normal heart sound present, S2 normal heart sound present and no murmurs GI: Palpation (GI): Soft to palpation, nontender and No hepatosplenomegaly present Auscultation: normal bowel sounds Rectal Exam - Female: deferred Skin: General skin exam: no rashes or lesions noted Neuro: General: oriented to person, oriented to place, gait normal and moves all extremities (foot drop) Cranial nerves: Yes Equal, round and reactive pupils present and Yes Normal hearing present Speech: No Abnormal speech present Psych: Appearance: grossly normal Mental Status: mental status grossly normal Results Labs CBC & Chem 7: 09/17/20 13:28 09/16/20 06:35 Labs: Short CBC 09/16/20 Range/Units 06:35 WBC 3.1 L (4.8-10.8) X10*3/uL Hgb 7.9 L (12.0-16.0) g/dl Hct 25.3 L (37-47) % Plt Count 34 L (160-400) X10*3/uL BMP 09/16/20 06:35 Sodium 132 L Potassium 3.4 Chloride 103 Carbon Dioxide 23 BUN 5 L Creatinine 0.53 Calcium 7.2 L Assessment and Plan (1) Acute hepatic encephalopathy: Status: Resolved (2) Alcohol dependence: Status: Acute (3) Alcoholic cirrhosis: (4) Pancytopenia: 39 YF with ESLD complicated by hepatic encephalopathy due to ongoing ETOH use since age 9 yrs. AST is 2 times > than ALT suggestive of alcoholic liver disease. Her liver disease is complicated by splenomegaly with portal hypertension and thrombocytopenia. Hepatitis A, B and C serologies were negative in the past No ascites noted on past CT scan. MELD score is 21. Elevated INR likely due to cirrhosis and nutritional Vitamin K deficiency. EGD in 03/03 showed a small hiatal hernia, small gastric ulcer, portal gastropathy and minimal esophageal varices RECOMMENDATIONS: 1. Monitor H&H daily and transfuse p.r.n. 2. Order placed for repeat INR in the am. 3. Abdominal ultrasound to screen for ascites and HCC 4. Proceed with upper endoscopy - scheduled on 09/17/2020. Patient will need platelet transfusion in the am to bring platelet count to > 50 K . Procedures Date of Service Date of Service: 09/16/20
--- NOTE | 2020-09-16 13:53 | MHC.CLN ---
PT REPORTED WT LOSS 3-4YEARS AGO UBW 198# NOW CURRENTLY 150# NO SIGNIFICANT WT CHANGES PREVIOUS WT HX REVEALS 143# (11/2019) PT REPORTS GREAT PO INTAKE FOLLOWING
[2020-09-16 15:18] VITALS: BP 146/81; PULSE 88; RESP 20; TEMP 37.1; O2SAT 100
--- NOTE | 2020-09-16 16:09 | MHC.RECOVRN ---
39 year old female presented to [facility] via EMS on 09/14 due to pt brought to ED by ems after being found in park after drinking. per EMS pt drank 4 tall beers . 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 Upon evaluation, pt admitted for AUD, anemia, acute?hepatic encephalopathy, pancytopenia, and alcoholic cirrhosis. T/w met with pt in 369 after consult placed to the CARE Team for alcohol use. Pt reports drinking 2 beers daily since age 9. Pt reports the most in a day could be 3-4 25 oz beers. Pt reports drinking liquor at parties, not on a daily?basis. Pt reports last drink was on 09/14 [employer]. Pt states I can go without it but I get the shakes. Pt denies receiving treatment for AUD and states I want to move before I stop drinking. Pt tearful and reports needing to move out of the [facility]dc and into an apartment. Pt lives with boyfriend. Pt reports using a walker while inside and a wheelchair when out, my boyfriend pushes me around. Difficult to engage pt in discussion regarding recovery,?continues to bring discussion back to moving. Pt reports longest period of recovery was in 2019, 1 month while in snf. Pt states They gave me Librium and it worked. Pt returned to drinking after release.? Pt aware that current health conditions are related to alcohol use. Pt states I was in a coma for 7 days at [facility] because of my ammonia. It's the alcohol. ? However, pt continues to be focused on discharge from [facility] and moving into apartment.? T/w discussed multiple pathways to recovery with pt. Pt reports that new apartment is close to [facility] [place] and plans to go there. Pt does not currently want a referral for a power and recovery supervisor or to meet with one while inpatient. Medications for AUD were discussed with pt who is interested to learn more. Case will be discussed with Kadie Crystal APRN. Pt aware that some medications may not be appropriate due to current health issues.? Recovery resources were provided as well as t/w card. Case discussed with CM. Will continue to follow for question of appropriateness for medications for AUD.?
[2020-09-16 19:36] LABS: INTERNATIONAL NORM RATIO 2.2 (0.9-1.1); Prothrombin Time 26.4 SEC (10.8-13.0)
[2020-09-16 23:27] VITALS: BP 135/80; PULSE 100; RESP 17; TEMP 37.1; O2SAT 99
[2020-09-17] VITALS (19 sets, daily range): BP systolic 116–155; BP diastolic 66–95; PULSE 89–114; RESP 12–20; TEMP 36.6–37.8; O2SAT 97–100; BMI 23.5
[2020-09-17] MEDS: Dextrose 5 % and 0.45 % NaCl 1,000 ML 100 ML IVCONT ×2 (05:36→16:57)
[2020-09-17 06:54] LABS: INTERNATIONAL NORM RATIO 2.2 (0.9-1.1); Prothrombin Time 26.5 SEC (10.8-13.0)
[2020-09-17 07:00] LABS: Hematocrit 27.2 % (37-47); Hemoglobin 8.7 g/dl (12.0-16.0); Mean Corpuscular Hemoglobin 30.2 pg (27.0-33.0); Mean Corpuscular Volume 94.4 fL (80-98); Mean Platelet Volume 11.6 fL (9.4-12.3); Red Blood Count 2.88 X10*6/uL (4.20-5.50); Red Cell Distribution Width 17.2 % (11.0-16.0); White Blood Count 3.6 X10*3/uL (4.8-10.8)
[2020-09-17 07:09] LABS: Platelet Count 38 X10*3/uL (160-400)
[2020-09-17 07:13] LABS: Alanine Aminotransferase 16 U/L (0-31); Albumin Level 2.4 g/dL (3.5-5.0); Alkaline Phosphatase 144 U/L (39-117); Aspartate Amino Transferase 76 U/L (5-31); Bilirubin Direct 5.1 mg/dL (0.0-0.5); Bilirubin Total 8.7 mg/dL (0.0-1.0); Total Protein 6.8 g/dL (6.5-8.0)
[2020-09-17] MEDS: PHENobarbitaL 15 MG TABLET 45 MG PO (10:11)
[2020-09-17] MEDS: Pantoprazole Sodium 40 MG/10 ML VIAL IVPUSH (10:11)
[2020-09-17] MEDS: Thiamine HCL 100 MG TABLET PO (10:12)
[2020-09-17] MEDS: Phytonadione (Vit K1) Oral 10 MG/ML AMPUL PO (10:12)
[2020-09-17] MEDS: 0.9 % Sodium Chloride Flush 3 ML SYRINGE IVFLUSH ×2 (10:12→16:57)
[2020-09-17] MEDS: Folic Acid 1 MG TABLET PO (10:12)
[2020-09-17] MEDS: diphenhydrAMINE HCL 50 MG/ML VIAL 25 MG IVPUSH (10:34)
--- NOTE | 2020-09-17 10:53 | HO.PM.IMPN ---
Subjective Subjective Date of Service: 09/17/20 Interval History: Seen in f/u alcohol intoxication, anemia, and hepatic encephalopath--no confusion today, remains jaundic, itchy following second unit of platlets, Review of Systems Gen: no fever Resp: no sob, no cough CV: no chest, no ALMAGUER, no leg edema GI: No n/v, no abd pain, no blood in stool Neuro: No confusion Physical Exam Vital Signs: Vital Signs: Last Vital Signs Temp 98.3 F 09/17/20 09:16 Pulse 96 09/17/20 09:16 Resp 16 09/17/20 09:16 BP 146/78 H 09/17/20 09:03 Pulse Ox 99 09/17/20 09:16 Body Mass Index 23.5 Const: Other: Constitutional Awake and Alert, No apparent distress HEENT--sclera icteris, left perio orbital echymosis, says it happened last week from fall Neck Supple, No lymphadenopathy Cardiovascular RRR, No M/R/G, S1 S2, No S3 S4, No pedal edema Respiratory Lungs clear, No respiratory distress Gastrointestinal Non tender, Non-distended Skin No rash Neurological Alert & oriented x3, unsteady gait Psychological Appropriate affect Objective Data Current Medications Generic Name Dose Route Start Last Admin Trade Name Freq PRN Reason Stop Dose Admin Diphenhydramine HCl 25 mg 09/17/20 10:18 09/17/20 10:34 Diphenhydramine Hcl 50 Mg/Ml Vial IVPUSH 25 mg Q6H PRN Administration Itching Folic Acid 1 mg 09/15/20 10:30 09/17/20 10:12 Folic Acid 1 Mg Tablet PO 1 mg DAILY [facility] Administration Dextrose/Sodium Chloride 1,000 mls @ 100 mls/hr 09/15/20 13:00 09/17/20 05:36 D51/2ns IVCONT 100 mls/hr .Q10H [facility] Administration Lactulose 30 gm 09/15/20 09:00 09/17/20 10:12 Lactulose 20 Gm/30 Ml Solution PO Not Given TID [facility] Medication 1 each 09/15/20 10:44 No Benzodiazepines MISCELLANE DAILY [facility] Pharmacy Consult 1 each 09/15/20 08:29 Consult Rx Perform Med Rec MISCELLANE ONCE PRN Consult order Pharmacy Consult 1 each 09/15/20 10:26 Consult Rx Etoh Phenob Dosing MISCELLANE ONCE PRN Consult order Protocol Phenobarbital 30 mg 09/17/20 21:00 Phenobarbital 30 Mg Tablet PO 09/19/20 09:01 BID [facility] Protocol Phenobarbital 30 mg 09/20/20 09:00 Phenobarbital 30 Mg Tablet PO 09/21/20 09:01 DAILY [facility] Protocol Sodium Chloride 3 ml 09/15/20 16:00 09/17/20 10:12 0.9 % Sodium Chloride Flush 3 Ml Syringe IVFLUSH 3 ml QSHIFT [facility] Administration Labs CBC & Chem 7: 09/17/20 06:02 09/16/20 06:35 Assessment and Plan (1) Alcoholic intoxication: Status: Acute (2) Anemia, chronic disease: Status: Acute (3) Acute hepatic encephalopathy: Status: Acute (4) Alcohol dependence: Status: Acute (5) Pancytopenia: Status: Acute (6) Alcoholic cirrhosis: Status: Acute Assessment and Plan: 39 year female with alcoholic liver cirrhosis here alcohol intoxication and found to be anemic, hepatic encephalpathyic, pancytopenic, and coagulopathic. 1/Anemia, acute on chronic likely from alcohol liver disease, chronic slow GI bleed cannot be excluded at this time. She was transfused 1 U with improvment. H/H is better. GI is planning EGD today 2/Alcohol Dependence- and very high risk for withdrawal--continue Phenobarbital, folic acid and thiamine, CARE team consult before discharge 3/Pancytopenia d/t cirrhosis, monitor. Platlets and FFP transfusion before procedure 4/Hepatic Encephalopathy--she is more lucid this morning from what is previously documented, daily lactulose, ammonia level is down 5/Fall, unsteady gait--d/t aclohol--PT eval before discharge 6/Coagulopathy with INR 2, give vitamin k 10 daily x 3 days with no change 7/Liver failure with elevated INR/Jaundice-Not candidate for liver transplant due to active alcohol use, medical management, alcohol abstience, US of liver today DVT prophylasix compression device
[2020-09-17 13:37] LABS: Hematocrit 25.9 % (37-47); Mean Corpuscular HGB Conc 30.9 g/dl (31.0-35.0); Mean Corpuscular Hemoglobin 29.2 pg (27.0-33.0); Mean Corpuscular Volume 94.5 fL (80-98); Mean Platelet Volume 9.6 fL (9.4-12.3); Red Blood Count 2.74 X10*6/uL (4.20-5.50); Red Cell Distribution Width 17.5 % (11.0-16.0); White Blood Count 3.3 X10*3/uL (4.8-10.8)
[2020-09-17 13:40] LABS: Platelet Count 34 X10*3/uL (160-400)
[2020-09-17 13:50] LABS: INTERNATIONAL NORM RATIO 1.9 (0.9-1.1); Prothrombin Time 22.3 SEC (10.8-13.0)
--- NOTE | 2020-09-17 14:04 | MHC.CM.PN ---
EMR REVIEWED, PT RECEIVED 1UNIT FFP PER GI, PT WILL NEED UPPER GI DEPENDENT ON LABS, D/C UNLIKELY TODAY, POSSIBLE D/C TOMORROW 09/18, RECOVERY NURSE NOTIFIED OF PENDING D/C AND ARACELI HOPPER TO MEET W/PT PRIOR TO D/C. D/C PLAN: THOMAS Douglas IN [place], ACTION FOR CHAIR JENAETH, REFERRAL PLACED.
--- NOTE | 2020-09-17 14:57 | PC.NURSE ---
Per Dr. Hayward, HCG does not need to be completed prior to procedure.
[2020-09-17] MEDS: Lactated Ringers 1,000 ML 50 ML IVCONT (15:00)
--- NOTE | 2020-09-17 15:03 | MHC.SHP ---
Pre-Procedural Eval Section A The patient is an INPATIENT: Yes Changes since office visit: Yes New Medical Problems, Yes Changes in Medication and Yes Patient answered all questions; No Cold of Flu in the past 2 weeks The History & Physical has been completed within 30 days and I have reviewed it.: Yes Section B Chief Complaint: anemia hepatic encephalopathy Allergies: Allergies Allergy/AdvReac Type Severity Reaction Status Date / Time No Known Allergies Allergy Verified 09/08/20 00:04 Plan I have reviewed the history and physical and performed a pertinent physical examination on my patient. No changes have occurred unless specified.
--- NOTE | 2020-09-17 15:15 | P.OP_ITS ---
Operative Note Operative Note Date of Service: 09/17/20 Narrative: Pre-op diagnosis: cirrhosis, anemia with pancytopenia Post-op diagnosis: other (Non-bleeding esophageal varices, portal gastropathy) Procedure: FLEXIBLE TRANSORAL UPPER GASTROINTESTINAL ENDOSCOPY Consent: Indications for the procedure and potential complications of bleeding, perforation, reaction to medications and missed diagnosis were discussed with the patient and informed consent was obtained. Instrument: Olympus GIF H 190 mid size upper endoscope Monitoring: Vital signs and clinical assessment, continuous EKG monitoring, Pulse oximetry, Carbon Dioxide monitoring and blood pressure monitoring were done throughout the procedure. Procedure: The patient was placed in the left lateral decubitis position and pre-procedure medications were administered and a bite block was placed. The endoscope was inserted into the mouth and advanced under direct vision to the third part of duodenum. A careful inspection was made as the upper endoscope was withdrawn including a retroflexed examination of the proximal stomach; Findings and interventions are described below. 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 GE junction at 36 cms.. No esophagitis or Segura's Stomach: Moderate portal gastropathy without bleeding. Grade 2 flap valve on retroflexed examination of the cardia. 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 GE junction at 36 cms.. No esophagitis or Segura's STOMACH: Moderate portal gastropathy without bleeding. Grade 2 flap valve on retroflexed examination of the cardia. No blood or evidence of recent UGI bleeding noted on EGD. Severe anemia is likely due to pancytopenia associated with bone marrow suppression from ETOH and portal hypertension. Plan: Pt can be started on Nadolol for GI bleeding prophylaxis Patient to schedule a FU appt in the GI Clinic with Misael Zepeda M.D. Repeat EGD in 6 months for FU of varices Above findings were reviewed with the patient Surgeon: Misael Zepeda MD Anesthesia: MAC (Delmi Poe CRNA) Was an Engineering Design Supervisor used for this Procedure?: No Estimated blood loss (mL): 0 Condition: stable Disposition: PACU
--- NOTE | 2020-09-17 15:19 | HO.ANESPROP2 ---
[facility] Active Problems Active Problems: All Active Problems (Updated 09/15/20 @ 08:29 by Oly Mayer DO) Alcoholic intoxication (Acute) Anemia, chronic disease (Acute) Acute hepatic encephalopathy (Acute) Alcohol dependence (Acute) Pancytopenia (Acute) Alcoholic cirrhosis (Acute) Past Medical History Medical History Alcohol dependence Alcoholic cirrhosis Bronchial asthma DVT (deep vein thrombosis) in H/O varicose veins HTN (hypertension) Nasal bleeding Pancytopenia Family History Family History Father Pulmonary emboli Brother Throat cancer Social History Social History Household Members: Significant Other Housing: Other Housing Other:: prison/motel 6 Do you presently have visiting nurse or other home services: No Alcohol intake: current Alcohol intake frequency: 0-2 drinks per day Alcohol type: beer Patient Tobacco Use Status: Never used Tobacco Smoked in Last 30 Days: No Patient Interested in Nicotine Replacement: No Patient Given Instructions on How to Stop Smoking: No Second Hand Smoke Exposure: No Use of substances other than those prescribed or required for medical reasons: No Currently Displaying Signs/Symptoms of Drug Intoxication Withdrawal: No Any prior treatment program specific to substance use: No Have you been hit, kicked, punched, or otherwise hurt by someone within the past year? If so, by whom?: No Do you feel safe in your current relationship?: No Is there a partner from a previous relationship who is making you feel unsafe now?: No Are you made to feel afraid or neglected: No Are you DNR?: No Advance Directives: No Advance Directives Information Provided: No Advance Directives on File: No Do you have thoughts of harming others: None Do you have a plan to hurt others: No Plan Recently lost weight without trying: Yes How much weight loss: 24-33 pounds Eating poorly because of decreased appetite: Yes Nutrition screen score: 6 Patient : No service: No Current occupational status: unemployed Meds Allergies Allergy/AdvReac Type Severity Reaction Status Date / Time No Known Allergies Allergy Verified 09/08/20 00:04 Active Medications: Current Medications Generic Name Dose Route Start Last Admin Trade Name Freq PRN Reason Stop Dose Admin Diphenhydramine HCl 25 mg 09/17/20 10:18 09/17/20 10:34 Diphenhydramine Hcl 50 Mg/Ml Vial IVPUSH 25 mg Q6H PRN Administration Itching Folic Acid 1 mg 09/15/20 10:30 09/17/20 10:12 Folic Acid 1 Mg Tablet PO 1 mg DAILY JEFFERSON Administration Dextrose/Sodium Chloride 1,000 mls @ 100 mls/hr 09/15/20 13:00 09/17/20 05:36 D51/2ns IVCONT 100 mls/hr .Q10H JEFFERSON Administration Lactulose 30 gm 09/15/20 09:00 09/17/20 10:12 Lactulose 20 Gm/30 Ml Solution PO Not Given TID [facility] Medication 1 each 09/15/20 10:44 No Benzodiazepines MISCELLANE DAILY [facility] Pharmacy Consult 1 each 09/15/20 08:29 Consult Rx Perform Med Rec MISCELLANE ONCE PRN Consult order Pharmacy Consult 1 each 09/15/20 10:26 Consult Rx Etoh Phenob Dosing MISCELLANE ONCE PRN Consult order Protocol Phenobarbital 30 mg 09/17/20 21:00 Phenobarbital 30 Mg Tablet PO 09/19/20 09:01 BID JEFFERSON Protocol Phenobarbital 30 mg 09/20/20 09:00 Phenobarbital 30 Mg Tablet PO 09/21/20 09:01 DAILY [facility] Protocol Sodium Chloride 3 ml 09/15/20 16:00 09/17/20 10:12 0.9 % Sodium Chloride Flush 3 Ml Syringe IVFLUSH 3 ml QSHIFT JEFFERSON Administration Home Medications Medication Instructions Recorded Confirmed Last Taken Type Iron Supplement 1 tab PO DAILY 09/15/20 09/15/20 09/13/20 History albuterol sulfate [ProAir HFA] 2 puff PO Q4-6H PRN 09/15/20 09/15/20 Unknown History cholecalciferol (vitamin D3) 1 cap PO DAILY 09/15/20 09/15/20 09/13/20 History folic acid 1 tab PO DAILY 09/15/20 09/15/20 09/13/20 History gabapentin 1 cap PO TID 09/15/20 09/15/20 09/13/20 History lidocaine 1 - 2 patch TOPICAL DAILY PRN 09/15/20 09/15/20 Unknown History melatonin 1 tab PO BEDTIME 09/15/20 09/15/20 09/13/20 History multivitamin with minerals 1 tab PO DAILY 09/15/20 09/15/20 09/13/20 History omeprazole 1 cap PO BIDAC 09/15/20 09/15/20 09/13/20 History thiamine HCl (vitamin B1) 1 tab PO DAILY 09/15/20 09/15/20 09/13/20 History Exam Exam Date and Time: September 17, 2020 1519 Height,Weight and Vital Signs: Height 5 ft 7 in Weight 68.039 kg Last Vital Signs Temp 100.1 F 09/17/20 14:36 Pulse 99 09/17/20 14:36 Resp 12 09/17/20 14:36 BP 141/90 H 09/17/20 14:36 Pulse Ox 100 09/17/20 14:36 Pertinent Lab Results Pertinent Lab Results: Laboratory Tests 09/14/20 09/14/20 09/14/20 20:58 20:58 20:58 WBC 3.3 L RBC 2.34 L Hgb 6.7 L* Hct 22.8 L MCV 97.4 MCH 28.6 MCHC 29.4 L RDW 17.7 H Plt Count 72 L D MPV 8.3 L Immature Gran % (Auto) 0.6 H Neut % (Auto) 49.0 Lymph % (Auto) 40.5 H [place] % (Auto) 7.5 Eos % (Auto) 1.5 Baso % (Auto) 0.9 Lymph # (Auto) 1.4 [place] # (Auto) 0.3 Eos # (Auto) 0.1 Baso # (Auto) 0.0 Abs Immat Gran (auto) 0.02 Absolute Neuts (auto) 1.6 L Absolute Nucleated RBC 0.000 Nucleated RBC % (auto) 0.0 Smear Path Review SEE NOTE Hold Purple Top SEE NOTE PT 24.6 H INR 2.1 H Sodium Potassium Chloride Carbon Dioxide Anion Gap BUN Creatinine Estim Creat Clear Calc Estimated GFR Random Glucose Calcium Total Bilirubin Direct Bilirubin AST ALT Alkaline Phosphatase Ammonia Total Protein Albumin Lipase Stool Occult Blood Ethyl Alcohol COVID-19 (JOHN) COVID-19 Clin Com Blood Type Antibody Screen Crossmatch ([facility]) 09/14/20 09/14/20 09/14/20 20:58 20:58 21:55 WBC RBC Hgb Hct MCV MCH MCHC RDW Plt Count MPV Immature Gran % (Auto) Neut % (Auto) Lymph % (Auto) [place] % (Auto) Eos % (Auto) Baso % (Auto) Lymph # (Auto) [place] # (Auto) Eos # (Auto) Baso # (Auto) Abs Immat Gran (auto) Absolute Neuts (auto) Absolute Nucleated RBC Nucleated RBC % (auto) Smear Path Review Hold Purple Top PT INR Sodium 142 Potassium 3.6 Chloride 107 Carbon Dioxide 25 Anion Gap 14 BUN 5 L D Creatinine 0.58 Estim Creat Clear Calc 124.1 Estimated GFR > 60 Random Glucose 114 Calcium 7.2 L Total Bilirubin 5.9 H Direct Bilirubin 3.9 H AST 88 H ALT 19 Alkaline Phosphatase 175 H Ammonia Total Protein 7.2 Albumin 2.6 L Lipase 68 Stool Occult Blood Ethyl Alcohol 397 H* COVID-19 (JOHN) COVID-19 Truveris Com Blood Type A Positive Antibody Screen NEGATIVE Crossmatch ([facility]) See Detail 09/14/20 09/15/20 09/15/20 21:55 01:04 04:37 WBC RBC Hgb Hct MCV MCH MCHC RDW Plt Count MPV Immature Gran % (Auto) Neut % (Auto) Lymph % (Auto) [place] % (Auto) Eos % (Auto) Baso % (Auto) Lymph # (Auto) [place] # (Auto) Eos # (Auto) Baso # (Auto) Abs Immat Gran (auto) Absolute Neuts (auto) Absolute Nucleated RBC Nucleated RBC % (auto) Smear Path Review Hold Purple Top PT INR Sodium Potassium Chloride Carbon Dioxide Anion Gap BUN Creatinine Estim Creat Clear Calc Estimated GFR Random Glucose Calcium Total Bilirubin Direct Bilirubin AST ALT Alkaline Phosphatase Ammonia 112 H Total Protein Albumin Lipase Stool Occult Blood NEGATIVE Ethyl Alcohol COVID-19 (JOHN) Negative COVID-19 Clin Com See Note Blood Type Antibody Screen Crossmatch ([facility]) 09/15/20 09/16/20 09/16/20 06:56 06:35 06:35 WBC 4.2 L 3.1 L RBC 2.92 L D 2.72 L Hgb 8.5 L D 7.9 L Hct 27.7 L D 25.3 L MCV 94.9 93.0 MCH 29.1 29.0 MCHC 30.7 L 31.2 RDW 17.9 H 17.5 H Plt Count 44 L D 34 L MPV 8.7 L 8.4 L Immature Gran % (Auto) 0.5 H Neut % (Auto) 45.0 Lymph % (Auto) 44.2 H [place] % (Auto) 7.9 Eos % (Auto) 1.4 Baso % (Auto) 1.0 Lymph # (Auto) 1.8 [place] # (Auto) 0.3 Eos # (Auto) 0.1 Baso # (Auto) 0.0 Abs Immat Gran (auto) 0.02 Absolute Neuts (auto) 1.9 L Absolute Nucleated RBC 0.000 0.000 Nucleated RBC % (auto) 0.0 0.0 Smear Path Review Hold Purple Top PT INR Sodium 132 L Potassium 3.4 Chloride 103 Carbon Dioxide 23 Anion Gap 9 L BUN 5 L Creatinine 0.53 Estim Creat Clear Calc 135.8 Estimated GFR > 60 Random Glucose 90 Calcium 7.2 L Total Bilirubin Direct Bilirubin AST ALT Alkaline Phosphatase Ammonia Total Protein Albumin Lipase Stool Occult Blood Ethyl Alcohol COVID-19 (JOHN) [email or web address] [facility] Blood Type Antibody Screen Crossmatch ([facility]) 09/16/20 09/16/20 09/17/20 09:30 19:20 06:02 WBC RBC Hgb Hct MCV MCH MCHC RDW Plt Count MPV Immature Gran % (Auto) Neut % (Auto) Lymph % (Auto) [place] % (Auto) Eos % (Auto) Baso % (Auto) Lymph # (Auto) [place] # (Auto) Eos # (Auto) Baso # (Auto) Abs Immat Gran (auto) Absolute Neuts (auto) Absolute Nucleated RBC Nucleated RBC % (auto) Smear Path Review Hold Purple Top PT 26.4 H 26.5 H INR 2.2 H 2.2 H Sodium Potassium Chloride Carbon Dioxide Anion Gap BUN Creatinine Estim Creat Clear Calc Estimated GFR Random Glucose Calcium Total Bilirubin Direct Bilirubin AST ALT Alkaline Phosphatase Ammonia 80 H Total Protein Albumin Lipase Stool Occult Blood Ethyl Alcohol COVID-19 (JOHN) COVID-19 Truveris [facility] Blood Type Antibody Screen Crossmatch ([facility]) 09/17/20 09/17/20 09/17/20 06:02 06:02 13:28 WBC 3.6 L 3.3 L RBC 2.88 L 2.74 L Hgb 8.7 L 8.0 L Hct 27.2 L 25.9 L MCV 94.4 94.5 MCH 30.2 29.2 MCHC 32.0 30.9 L RDW 17.2 H 17.5 H Plt Count 38 L 34 L MPV 11.6 9.6 Immature Gran % (Auto) Neut % (Auto) Lymph % (Auto) [place] % (Auto) Eos % (Auto) Baso % (Auto) Lymph # (Auto) [place] # (Auto) Eos # (Auto) Baso # (Auto) Abs Immat Gran (auto) Absolute Neuts (auto) Absolute Nucleated RBC 0.000 0.000 Nucleated RBC % (auto) 0.0 0.0 Smear Path Review Hold Purple Top PT INR Sodium Potassium Chloride Carbon Dioxide Anion Gap BUN Creatinine Estim Creat Clear Calc Estimated GFR Random Glucose Calcium Total Bilirubin 8.7 H Direct Bilirubin 5.1 H AST 76 H ALT 16 Alkaline Phosphatase 144 H Ammonia Total Protein 6.8 Albumin 2.4 L Lipase Stool Occult Blood Ethyl Alcohol COVID-19 (JOHN) [employer] Blood Type Antibody Screen Crossmatch ([facility]) 09/17/20 13:28 WBC RBC Hgb Hct MCV MCH MCHC RDW Plt Count MPV Immature Gran % (Auto) Neut % (Auto) Lymph % (Auto) [place] % (Auto) Eos % (Auto) Baso % (Auto) Lymph # (Auto) [place] # (Auto) Eos # (Auto) Baso # (Auto) Abs Immat Gran (auto) Absolute Neuts (auto) Absolute Nucleated RBC Nucleated RBC % (auto) Smear Path Review Hold Purple Top PT 22.3 H INR 1.9 H Sodium Potassium Chloride Carbon Dioxide Anion Gap BUN Creatinine Estim Creat Clear Calc Estimated GFR Random Glucose Calcium Total Bilirubin Direct Bilirubin AST ALT Alkaline Phosphatase Ammonia Total Protein Albumin Lipase Stool Occult Blood Ethyl Alcohol COVID-19 (JOHN) COVID-[id number] films Blood Type Antibody Screen Crossmatch ([facility]) Airway Mallampati Class: II TM Dist: >3cm Neck ROM: Full Loose/Missing/Broken Teeth: No Heart: RRR Lungs: CTA Assessment and Plan Assessment Anesthesia Assessment: Anesthesia Plan Discussed and Chart Reviewed Final Anesthetic Review NPO: Yes ASA Class: III Final Preanesthetic Review: Meds/Allgs Chart Reviewed, Consent Obtained/Reviewed and Anes Risks/Benef Reviewed Patient Risk: High Procedure Risk: Intermediate Anesthetic Plan Anesthetic Plan: MAC: Disposition: Standard PACU
--- NOTE | 2020-09-17 16:53 | HO.ADDICTCON ---
History of Present Illness Date of Service: 09/17/2020 Chief Complaint: anemia hepatic encephalopathy Reason for Consult: alcohol use disorder Requesting physician: Derek Lee Discussed with referring provider: No Sources of Information: patient interviewed and chart reviewed HPI Narrative: Patient is a 39 year old female with severe alcohol use disorder, liver cirrhosis. Currently medically admitted with hepatic encephalopathy and and anemia. Patient was seen a couple of times by recovery support RN and expressed interest in medications for alcohol use disorder Patient seen in room 369. Awake, alert, but not very engaged in interview. She was easily distracted by the TV and provided minimal answers. Denies any history of being on medications for AUD, outside of ATS (detox) admissions. Attempted to discuss treatment options based on clinical picture, and patient reported she already knew about the medications. This writer technical publications began to explain acamprosate, goals of treatment, dosing, side effects, etc, and patient with minimal eye contact or engagement. Asked ot have prescription sent to [facility] pharmacy. Patient reporting she was leaving today. Identified her boyfriend as her main support. Declined to engage in interview any further Past Psychiatric History: not reviewed Medical Evaluation Reviewed: Yes Review of Systems Constitutional: Denies chills, Denies difficulty sleeping, Denies headache(s), Denies malaise, Denies poor appetite and Denies weight loss Denies headache(s) Denies headache(s) Psychiatric: Denies anxiety Diagnostics Vital Signs (24Hr): Vital Signs - 24 hr 09/16/20 23:27 09/17/20 08:00 09/17/20 08:29 Temperature 98.8 F 97.9 F 98.9 F Pulse Rate 100 90 93 Respiratory Rate 17 20 16 Blood Pressure 135/80 149/82 H 151/86 H Pulse Oximetry 99 99 97 09/17/20 08:40 09/17/20 09:03 09/17/20 09:16 Temperature 98.4 F 98.1 F 98.3 F Pulse Rate 91 89 96 Respiratory Rate 16 16 16 Blood Pressure 153/88 H 146/78 H Pulse Oximetry 99 98 99 09/17/20 12:58 09/17/20 13:11 09/17/20 14:36 Temperature 99.1 F 99.2 F 100.1 F Pulse Rate 97 100 99 Respiratory Rate 16 18 12 Blood Pressure 134/77 155/80 H 141/90 H Pulse Oximetry 100 06/04/21 15:40 09/17/20 15:50 09/17/20 15:57 Temperature 98.6 F 99.0 F Pulse Rate 114 H 110 H 98 Respiratory Rate 12 20 18 Blood Pressure 116/66 134/87 132/84 Pulse Oximetry 99 99 100 09/17/20 16:08 Temperature Pulse Rate 93 Respiratory Rate 16 Blood Pressure 130/79 Pulse Oximetry 99 Body Mass Index 23.5 Labs Results: 09/17/20 13:28 09/16/20 06:35 Labs: Laboratory Results - last 48 hr 09/14/20 09/16/20 09/16/20 21:55 06:35 06:35 WBC 3.1 L RBC 2.72 L Hgb 7.9 L Hct 25.3 L MCV 93.0 MCH 29.0 MCHC 31.2 RDW 17.5 H Plt Count 34 L MPV 8.4 L Absolute Nucleated RBC 0.000 Nucleated RBC % (auto) 0.0 PT INR Sodium 132 L Potassium 3.4 Chloride 103 Carbon Dioxide 23 Anion Gap 9 L BUN 5 L Creatinine 0.53 Estim Creat Clear Calc 135.8 Estimated GFR > 60 Random Glucose 90 Calcium 7.2 L Total Bilirubin Direct Bilirubin AST ALT Alkaline Phosphatase Ammonia Total Protein Albumin Blood Type A Positive Antibody Screen NEGATIVE Crossmatch ([facility]) See Detail 09/16/20 09/16/20 09/17/20 09:30 19:20 06:02 WBC RBC Hgb Hct MCV MCH MCHC RDW Plt Count MPV Absolute Nucleated RBC Nucleated RBC % (auto) PT 26.4 H 26.5 H INR 2.2 H 2.2 H Sodium Potassium Chloride Carbon Dioxide Anion Gap BUN Creatinine Estim Creat Clear Calc Estimated GFR Random Glucose Calcium Total Bilirubin Direct Bilirubin AST ALT Alkaline Phosphatase Ammonia 80 H Total Protein Albumin Blood Type Antibody Screen Crossmatch ([facility]) 09/17/20 09/17/20 09/17/20 06:02 06:02 13:28 WBC 3.6 L 3.3 L RBC 2.88 L 2.74 L Hgb 8.7 L 8.0 L Hct 27.2 L 25.9 L MCV 94.4 94.5 MCH 30.2 29.2 MCHC 32.0 30.9 L RDW 17.2 H 17.5 H Plt Count 38 L 34 L MPV 11.6 9.6 Absolute Nucleated RBC 0.000 0.000 Nucleated RBC % (auto) 0.0 0.0 PT INR Sodium Potassium Chloride Carbon Dioxide Anion Gap BUN Creatinine Estim Creat Clear Calc Estimated GFR Random Glucose Calcium Total Bilirubin 8.7 H Direct Bilirubin 5.1 H AST 76 H ALT 16 Alkaline Phosphatase 144 H Ammonia Total Protein 6.8 Albumin 2.4 L Blood Type Antibody Screen Crossmatch ([facility]) 09/17/20 13:28 WBC RBC Hgb Hct MCV MCH MCHC RDW Plt Count MPV Absolute Nucleated RBC Nucleated RBC % (auto) PT 22.3 H INR 1.9 H Sodium Potassium Chloride Carbon Dioxide Anion Gap BUN Creatinine Estim Creat Clear Calc Estimated GFR Random Glucose Calcium Total Bilirubin Direct Bilirubin AST ALT Alkaline Phosphatase Ammonia Total Protein Albumin Blood Type Antibody Screen Crossmatch ([facility]) Imaging Radiology Impressions: ITS Impressions Cervical Spine CT 09/14/20 21:26 IMPRESSION: No acute intracranial process seen. No maxillofacial, nasal or mandibular fracture. Mild straightening of cervical lordosis without any acute fracture or dislocation. There are degenerative disc changes and spondylosis at C5-C6 and C6-C7 disc levels. Face CT 09/14/20 21:26 IMPRESSION: No acute intracranial process seen. No maxillofacial, nasal or mandibular fracture. Mild straightening of cervical lordosis without any acute fracture or dislocation. There are degenerative disc changes and spondylosis at C5-C6 and C6-C7 disc levels. Head CT 09/14/20 21:26 IMPRESSION: No acute intracranial process seen. No maxillofacial, nasal or mandibular fracture. Mild straightening of cervical lordosis without any acute fracture or dislocation. There are degenerative disc changes and spondylosis at C5-C6 and C6-C7 disc levels. Abdomen Ultrasound 09/17/20 09:00 IMPRESSION: No peritoneal ascites. Mental Status Exam Mental Status Exam Patient Appearance: Disheveled Level of Consciousness: Awake and Alert Patient Behavior: Distractible and Poor Eye Contact Mood Description: Blunted Affect Description: Blunted Thought Process: Distracted Thought Content: positive for [place] Judgement: Fair Medications Medications Current Medications Generic Name Dose Route Start Last Admin Trade Name Freq PRN Reason Stop Dose Admin Diphenhydramine HCl 25 mg 09/17/20 10:18 09/17/20 10:34 Diphenhydramine Hcl 50 Mg/Ml Vial IVPUSH 25 mg Q6H PRN Administration Itching Folic Acid 1 mg 09/15/20 10:30 09/17/20 10:12 Folic Acid 1 Mg Tablet PO 1 mg DAILY JEFFERSON Administration Dextrose/Sodium Chloride 1,000 mls @ 100 mls/hr 09/15/20 13:00 09/17/20 05:36 D51/2ns IVCONT 100 mls/hr .Q10H JEFFERSON Administration Lactated Ringer's 1,000 mls @ 50 mls/hr 09/17/20 15:30 09/17/20 15:00 Lr IVCONT 50 mls/hr .Q20H JEFFERSON Administration Lactulose 30 gm 09/15/20 09:00 09/17/20 10:12 Lactulose 20 Gm/30 Ml Solution PO Not Given TID JEFFERSON Medication 1 each 09/15/20 10:44 No Benzodiazepines MISCELLANE DAILY [facility] Pharmacy Consult 1 each 09/15/20 08:29 Consult Rx Perform Med Rec MISCELLANE ONCE PRN Consult order Pharmacy Consult 1 each 09/15/20 10:26 Consult Rx Etoh Phenob Dosing MISCELLANE ONCE PRN Consult order Protocol Phenobarbital 30 mg 09/17/20 21:00 Phenobarbital 30 Mg Tablet PO 09/19/20 09:01 BID JEFFERSON Protocol Phenobarbital 30 mg 09/20/20 09:00 Phenobarbital 30 Mg Tablet PO 09/21/20 09:01 DAILY JEFFERSON Protocol Sodium Chloride 3 ml 09/15/20 16:00 09/17/20 10:12 0.9 % Sodium Chloride Flush 3 Ml Syringe IVFLUSH 3 ml QSHIFT JEFFERSON Administration Allergies Allergies Allergy/AdvReac Type Severity Reaction Status Date / Time No Known Allergies Allergy Verified 09/08/20 00:04 Assessment & Plan Assessment & Plan (1) Alcohol use disorder, severe, dependence: Status: Acute Code(s): F10.20 - Alcohol dependence, uncomplicated Recommendations: limited insight, but verbalizing desire to trial campral once discharged unclear if patient able to process information presented. Reinforcement and reeducation needed campral TID at time of discharge may be of some benefit to address AUD--additional supports woudl greatly benefit patient as well Greater than 50% of the session was spent on counseling and/or coordination of care PMFSH Past Medical History Medical History Alcohol dependence Alcoholic cirrhosis Bronchial asthma DVT (deep vein thrombosis) in H/O varicose veins HTN (hypertension) Nasal bleeding Pancytopenia Family History Family History Father Pulmonary emboli Brother Throat cancer Social History Social History Household Members: Significant Other Housing: Other Housing Other:: alf/motel 6 Do you presently have visiting nurse or other home services: No Alcohol intake: current Alcohol intake frequency: 0-2 drinks per day Alcohol type: beer Patient Tobacco Use Status: Never used Tobacco Smoked in Last 30 Days: No Patient Interested in Nicotine Replacement: No Patient Given Instructions on How to Stop Smoking: No Second Hand Smoke Exposure: No Use of substances other than those prescribed or required for medical reasons: No Currently Displaying Signs/Symptoms of Drug Intoxication Withdrawal: No Any prior treatment program specific to substance use: No Have you been hit, kicked, punched, or otherwise hurt by someone within the past year? If so, by whom?: No Do you feel safe in your current relationship?: No Is there a partner from a previous relationship who is making you feel unsafe now?: No Are you made to feel afraid or neglected: No Are you DNR?: No Advance Directives: No Advance Directives Information Provided: No Advance Directives on File: No Do you have thoughts of harming others: None Do you have a plan to hurt others: No Plan Recently lost weight without trying: Yes How much weight loss: 24-33 pounds Eating poorly because of decreased appetite: Yes Nutrition screen score: 6 Patient : No service: No Current occupational status: unemployed
[2020-09-17] MEDS: Lactulose 20 GM/30 ML SOLUTION 30 GM PO ×2 (17:03→20:17)
--- NOTE | 2020-09-17 17:10 | PC.NURSE ---
P patient states Dr.m Zepeda told her she can go home I-Dr. howard notified of the above e-need for PLT treatment explained to patient
[2020-09-17] MEDS: PHENobarbitaL 30 MG TABLET PO (20:18)
[2020-09-18] MEDS: Dextrose 5 % and 0.45 % NaCl 1,000 ML 100 ML IVCONT (02:17)
[2020-09-18 02:53] VITALS: BP 146/80; PULSE 97; RESP 16; TEMP 36.2; O2SAT 99
[2020-09-18 08:00] VITALS: BP 129/74; PULSE 91; RESP 17; TEMP 36.9; O2SAT 97
--- NOTE | 2020-09-18 09:15 | PM.DS ---
DS: Providers Provider Date of Service: 09/18/20 Date of admission: 09/15/20 10:06 Primary care physician: Unknown Physician Consults: 09/15/20 10:07 Consult to Gastroenterology Routine Consulting Provider: Albert Reddy Reason for consultation: Anemia, 09/15/20 10:37 Consult to Care Team Routine Comment: Reason for consultation: alcohol use DS: Diagnosis Discharge Diagnosis (1) Alcohol use disorder, severe, dependence: Status: Acute DS: Medications Discharge Medications Home Medications: Home Medications Medication Instructions Recorded Confirmed Iron Supplement 1 tab PO DAILY 09/15/20 09/15/20 albuterol sulfate [ProAir HFA] 2 puff PO Q4-6H PRN 09/15/20 09/15/20 cholecalciferol (vitamin D3) 1 cap PO DAILY 09/15/20 09/15/20 folic acid 1 tab PO DAILY 09/15/20 09/15/20 gabapentin 1 cap PO TID 09/15/20 09/15/20 lidocaine 1 - 2 patch TOPICAL DAILY PRN 09/15/20 09/15/20 melatonin 1 tab PO BEDTIME 09/15/20 09/15/20 multivitamin with minerals 1 tab PO DAILY 09/15/20 09/15/20 omeprazole 1 cap PO BIDAC 09/15/20 09/15/20 thiamine HCl (vitamin B1) 1 tab PO DAILY 09/15/20 09/15/20 Previous Rx's Medication Instructions Recorded ciprofloxacin HCl 500 mg PO Q12H 5 Days #10 tab 07/22/20 DS: Summary Hospital Course Hospital Course: Chief Complaint: Falll, alcohol intoxication 39 year female with cirrhosis of liver, alcohol dependency, drinking since age 9, she claims to drink 2 beers a day. She presents to ED falling a fall that is likely alcohol related and was noted in the ED to be unsteady with some confusion and high ammonia consistent with hepatic encephalopathy. She is noted to be significantly more anemic than usual with hemoglobin of 6, however negative occult blood. She is transfused 1 unit of RBC and Hemoglobin is better. Her LFTs are high, including bili and INR of 2, platlets of 44. Alcohol level was over 300. Was seen in ED under similar circumstance on 09/08 Hospital course. 1/Anemia, acute on chronic, she presented with a hemoglobin of 6.7 on September 14, she was transfuse 1 unit in the emergency room and given IV ppi. She subsequently was seen by Dr. Zepdea from GI and underwent EGD on September 17 with the following findings and recommendations. 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 GE junction at 36 cms.. No esophagitis or Segura's Stomach: Moderate portal gastropathy without bleeding. Grade 2 flap valve on retroflexed examination of the cardia. 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 GE junction at 36 cms.. No esophagitis or Segura's STOMACH: Moderate portal gastropathy without bleeding. Grade 2 flap valve on retroflexed examination of the cardia. No blood or evidence of recent UGI bleeding noted on EGD. Severe anemia is likely due to pancytopenia associated with bone marrow suppression from ETOH and portal hypertension. Plan: Pt can be started on Nadolol for GI bleeding prophylaxis Patient to schedule a FU appt in the GI Clinic with Misael Zepeda M.D. Repeat EGD in 6 months for FU of varices As st stated above there was no source of bleeding noted, there was no active bleed. Her anemia is attributed to likely pancytopenia from a chronic alcohol use and alcoholic liver disease/at hypersplenism. Her hemoglobin and hematocrit have since been stable during hospitalization. She will follow-up with Dr. Zepeda on outpatient basis and is to have a repeat EGD in 6 months. 2/Alcohol Dependence- and very high risk for withdrawal--she was empirically treated for alcohol withdrawal with phenobarbital although she did not exhibit any overt signs of alcohol withdrawal while in the hospital. I have spoken to her multiple occasion regarding the need to complete alcohol cessation and the impact that has on her life that she is likely to prematurely if she continued on this trajectory. Take care team saw the patient and given her resources to help her achieve complete sobriety 3/Pancytopenia d/t cirrhosis--due to chronic alcoholic liver disease and is likely to get better if she stop drinking alcohol altogether and becomes sober. She was transfused 2 units of platelets before EGD when her platelet count was around 38 4/Hepatic Encephalopathy--ammonia level was 112 with some confusion. She was given lactulose in the emergency room and in a repeat ammonia level came down to 80 and she is completely lucid. She will be discharged with a some lactulose on a daily basis to prevent her from going to hepatic encephalopathy again. 5/Fall, unsteady gait--d/t aclohol-- 6/Coagulopathy with INR 2, give vitamin k 10 daily x 3 days with no change, she received FFP prior to EGD. 7/Liver failure with elevated INR/Jaundice-Not candidate for liver transplant due to active alcohol use, medical management, alcohol abstience, US of liver showed no ascietes. Nadalolol will be prescribe for varices Time Spent with Patient Time attestation: Total time spent providing and/or coordinating discharge services: Discharge coordination time: Greater than 30 minutes Quality: Stroke Does the patient have a stroke diagnosis?: No Physical Exam Vital Signs: Vital Signs: Last Vital Signs Temp 98.5 F 09/18/20 08:00 Pulse 91 09/18/20 08:00 Resp 17 09/18/20 08:00 BP 129/74 09/18/20 08:00 Pulse Ox 97 09/18/20 08:00 Body Mass Index 23.5 Constitutional Awake and Alert, No apparent distress echymosis around left eye Neck Supple, No lymphadenopathy Cardiovascular RRR, No M/R/G, S1 S2, No S3 S4, No pedal edema Respiratory Lungs clear, No respiratory distress Gastrointestinal Non tender, Non-distended Skin No rash Neurological Alert & oriented x3 Psychological Appropriate affect DS: Data Data Completed and Pending Labs on day of discharge: Laboratory Results - last 24 hr 09/14/20 09/17/20 09/17/20 21:55 13:28 13:28 WBC 3.3 L RBC 2.74 L Hgb 8.0 L Hct 25.9 L MCV 94.5 MCH 29.2 MCHC 30.9 L RDW 17.5 H Plt Count 34 L MPV 9.6 Absolute Nucleated RBC 0.000 Nucleated RBC % (auto) 0.0 PT 22.3 H INR 1.9 H Blood Type A Positive Antibody Screen NEGATIVE Crossmatch (AHG) See Detail Discharge Plan Discharge Anticipated Discharge Date/Time: 09/18/20 09:11 Patient Disposition: Home, Self-Care Discharge Diagnosis: Chronic alcohol dependency, cirrhosis of liver, acute on chronic anemia Referrals: Physician,Unknown [Primary Care Provider] - 1 Week Discharge Medications: New nadolol 20 mg Tablet 10 mg PO DAILY Qty: 30 RF: 0 lactulose 20 gram/30 mL Solution 30 g PO BID Qty: 1500 RF: 0 Continued thiamine HCl (vitamin B1) 100 mg tablet 1 tab PO DAILY RF: 0 melatonin 3 mg tablet 1 tab PO BEDTIME RF: 0 lidocaine 5 % adhesive patch,medicated 1 - 2 patch topical DAILY PRN (Reason: Pain) RF: 0 omeprazole 20 mg capsule,delayed release(DR/EC) 1 cap PO BIDAC RF: 0 folic acid 1 mg tablet 1 tab PO DAILY RF: 0 multivitamin with minerals Tablet 1 tab PO DAILY RF: 0 albuterol sulfate [ProAir HFA] 90 mcg/actuation HFA aerosol inhaler 2 puff PO Q4-6H PRN (Reason: Shortness Of Breath) RF: 0 cholecalciferol (vitamin D3) 50 mcg (2,000 unit) capsule 1 cap PO DAILY RF: 0 gabapentin 300 mg capsule 1 cap PO TID RF: 0 Iron Supplement 1 tab PO DAILY RF: 0 Discontinued ciprofloxacin HCl 500 mg tablet 500 mg PO Q12H 5 Days Qty: 10 RF: 0 Discharge Orders: Discharge Order (Routine); Ordered 09/18/20 Ordered By: Derek Lee Diet: advance to usual diet Activity on Discharge: As tolerated Stand Alone Forms: Patient Portal Discharge page Care Plan Goals: To achieve sobriety from alcohol. Pre very hospitalization Health Concerns: Chronic alcohol dependency, alcoholic liver disease, active alcohol use. Plan of Treatment: Patient is to participate in alcohol cessation program to stop drinking altogether Assessment: See above
[2020-09-18] MEDS: PHENobarbitaL 30 MG TABLET PO (10:07)
[2020-09-18] MEDS: Folic Acid 1 MG TABLET PO (10:07)
[2020-09-18] MEDS: Lactulose 20 GM/30 ML SOLUTION 30 GM PO (10:07)
--- NOTE | 2020-09-18 10:28 | MHC.CM.PN ---
pt cleared to DC today. per pt preference, she will DC back to [place] [id number] where her boyfriend will be waiting to assist her. pt reports she and her boyfriend will then begin moving to their new apartment on [address] in [place]. Pt will be transported home via chair van (BLS covering)
[2020-09-18 11:50] VITALS: BP 158/75; PULSE 90; RESP 17; TEMP 36.7; O2SAT 100
[2020-09-18] MEDS: nadoloL 20 MG TABLET 10 MG PO (12:06)
[2020-09-18 12:08] VITALS: BP 158/75; PULSE 90; O2SAT 100
--- NOTE | 2020-09-18 14:02 | HO.POSTANES ---
Post Anesthesia Evaluation Post Anesthesia Evaluation Vital Signs: Vital Signs Temp Pulse Resp BP Pulse Ox 09/18/20 12:08 90 158/75 H 100 09/18/20 11:50 98.0 F 90 17 158/75 H 100 09/18/20 08:00 98.5 F 91 17 129/74 97 09/18/20 02:53 97.2 F 97 16 146/80 H 99 Anesthesia: Monitored Mental Status: Awake Pain Control: Satisfactory Nausea/Vomiting: None Hydration: Adequate Anesthesia-Related Issues: No Anes. Related Issues
== END 2020-09-18 15:04 | disposition home or self-care (01) | DRG 279 ==
LOC: HO.ED 09-15 08:29 → HO.EDOVER 09-15 10:52 → HO.S3 09-15 11:00
PROVIDERS: Internal Medicine Gastroenterology; Physician Assistant; Admitting Provider Internal Medicine; Emergency Provider Emergency Medicine; Visit Provider Internal Medicine
PROC: 0DJ08ZZ Inspection of Upper Intestinal Tract, Via Natural or Artificial Opening Endoscopic (ICD-10-PCS; CPT 43235; principal; 2020-09-17 13:10)
DX: K72.90 Hepatic failure, unspecified without coma (principal); D61.818 Other pancytopenia; D68.9 Coagulation defect, unspecified; I85.10 Secondary esophageal varices without bleeding; K70.30 Alcoholic cirrhosis of liver without ascites; F10.229 Alcohol dependence with intoxication, unspecified; D63.8 Anemia in other chronic diseases classified elsewhere; K76.6 Portal hypertension; K31.89 Other diseases of stomach and duodenum; F10.239 Alcohol dependence with withdrawal, unspecified; Z20.822 Contact with and (suspected) exposure to COVID-19; Z79.899 Other long term (current) drug therapy
CPT/HCPCS: 36415; 70450; 70486; 72125; 76705; 80048; 80053; 80076; 82077; 82140; 82272; 83690; 85025; 85027; 85610; 86850; 86900; 86901; 86920; 86922; 87635; 97162; 99285; J1200; J2560; J3430; P9016; P9017; P9035

== ENCOUNTER 2020-09-30 03:41 | Emergency (ER) | payer MEDICAID, SELFPAY ==
[2020-09-30] VITALS (19 sets, daily range): BP systolic 60–110; BP diastolic 34–70; PULSE 105–135; RESP 16–20; TEMP 36.7; O2SAT 97–100; BMI 24.1
--- NOTE | ~2020-09-30 | CT_ITS ---
EXAMINATION: CT ABDOMEN AND PELVIS WITHOUT AND WITH CONTRAST CLINICAL INFORMATION: Cirrhosis. Acute anemia. Tachycardia. COMPARISON: CT abdomen/pelvis dated 11/19/2019 11/03/2019, and 08/30/2019 TECHNIQUE: Multidetector volumetric imaging was performed from the superior aspect of the liver through the pubic symphysis before and after the administration of 80 mL of Omnipaque 350 intravenous contrast. Sagittal and coronal reformatted images were obtained on the technologist's workstation. This CT examination was performed using dose optimization techniques as appropriate, variously including the following: *Automated exposure control *Adjustment of mA and/or kV according to patient size (this includes techniques or standardized protocols for targeted exams where dose is matched to indication/reason for exam; i.e. extremities or head) *Use of iterative reconstruction technique DLP: 1662 mGy-cm FINDINGS: IMAGED THORAX: Lungs are clear. Normal heart size. No pericardial effusion. LIVER, GALLBLADDER, AND BILIARY TREE: Morphologically cirrhotic liver. Diffuse nodularity present throughout the liver. No intra or extrahepatic biliary dilatation. Cholelithiasis. PANCREAS: Unremarkable. SPLEEN: Spleen is ruptured with intraparenchymal and subcapsular hematomas replacing approximately 50% of the splenic parenchyma with interspersed areas of active bleeding evident showing accumulation during the delayed phase. Splenic hilar vessels do appear intact, however at least 25% of the spleen is devascularized. There is associated hemoperitoneum, likely mixing with moderate volume ascites. ADRENAL GLANDS: Unremarkable. KIDNEYS AND URETERS: The kidneys are normal in size, shape, and attenuation. No hydronephrosis, hydroureter, or calculi seen. No perinephric stranding. BLADDER: Unremarkable. GASTROINTESTINAL TRACT: No intestinal obstruction or inflammation. No source of active gastrointestinal bleeding. BODY WALL: No significant hernia is appreciated. Subcutaneous edema and skin thickening present along the bilateral buttock regions. LYMPH NODES: No lymphadenopathy. VASCULAR: Massive splenorenal shunt. Esophageal varices. PELVIC VISCERA: Uterus and adnexa unremarkable. OSSEOUS STRUCTURES: No acute or suspicious osseous abnormalities. Healed left-sided rib fractures redemonstrated. CT/CT gi bleed abd pel wo/w con IMPRESSION: * Grade 4 splenic injury with intraparenchymal and subcapsular hematomas occupying greater than 50% of the splenic volume, and greater than 25% devascularization of the splenic parenchyma with areas of active bleeding evident within the devascularized portions of the splenic parenchyma, with accompanying hemoperitoneum. * Reflective of chronic liver with portal hypertension evidenced by a massive splenorenal shunt and esophageal varices. * Cholelithiasis. This critical result was discussed with Alejandrina Vidal MD at 09/30/2020 6:38 AM and it was ascertained that the content and urgency of the report was understood at the time of direct communication.
--- NOTE | ~2020-09-30 | CT_ITS ---
EXAMINATION: CT HEAD WITHOUT CONTRAST CLINICAL INFORMATION: Altered mental status. COMPARISON: 09/14/2020 TECHNIQUE: Contiguous axial imaging was performed from the skull base to vertex without intravenous administration of contrast. This CT examination was performed using dose optimization techniques as appropriate, variously including the following: *Automated exposure control *Adjustment of mA and/or kV according to patient size (this includes techniques or standardized protocols for targeted exams where dose is matched to indication/reason for exam; i.e. extremities or head) *Use of iterative reconstruction technique DLP: 1373 mGy-cm FINDINGS: There is no evidence of acute intracranial hemorrhage or territorial infarction. No abnormal mass effect or midline shift is seen. Weiss to white matter differentiation is well preserved. No extra-axial fluid collections are identified. The ventricles are normal in size. There is no abnormal attenuation within the brain parenchyma. Cavernous carotid calcifications. The osseous structures and soft tissues are normal. The mastoid air cells and visualized portions of the paranasal sinuses are well aerated. CT/CT head/brain wo con IMPRESSION: No acute intracranial pathology.
--- NOTE | 2020-09-30 03:51 | ED_ITS ---
HPI - General Adult General Chief complaint: Fall Stated complaint: FALL FROM STANDING,NO INJURY,PER EMS Time Seen by Provider: 09/30/20 03:47 Source: patient Mode of arrival: EMS History of Present Illness HPI narrative: 39-year-old female with known history of alcohol dependence and multiple falls. She states that she has only had 1 beer today and stood up to go to the bathroom and fell. She denies any recent fevers, chills, symptoms and denies any shortness of breath or chest pain. She states she is feeling nauseous. Related Data Home Medications Medication Instructions Recorded Confirmed Iron Supplement 1 tab PO DAILY 09/15/20 09/15/20 albuterol sulfate [ProAir HFA] 2 puff PO Q4-6H PRN 09/15/20 09/15/20 cholecalciferol (vitamin D3) 1 cap PO DAILY 09/15/20 09/15/20 folic acid 1 tab PO DAILY 09/15/20 09/15/20 gabapentin 1 cap PO TID 09/15/20 09/15/20 lidocaine 1 - 2 patch TOPICAL DAILY PRN 09/15/20 09/15/20 melatonin 1 tab PO BEDTIME 09/15/20 09/15/20 multivitamin with minerals 1 tab PO DAILY 09/15/20 09/15/20 omeprazole 1 cap PO BIDAC 09/15/20 09/15/20 thiamine HCl (vitamin B1) 1 tab PO DAILY 09/15/20 09/15/20 Previous Rx's Medication Instructions Recorded lactulose 30 g PO BID #1500 ml 09/18/20 nadolol 10 mg PO DAILY #30 tab 09/18/20 Allergies Allergy/AdvReac Type Severity Reaction Status Date / Time No Known Allergies Allergy Verified 09/08/20 00:04 Review of Systems Review of Systems: Pertinent positives and negatives as stated in HPI 10 point review of systems is otherwise negative. [facility], [facility] Past Medical History Source: nursing notes reviewed Medical History Alcohol dependence Alcoholic cirrhosis Anemia, chronic disease Bronchial asthma DVT (deep vein thrombosis) in H/O varicose veins HTN (hypertension) Nasal bleeding Pancytopenia Family History Family History Father Pulmonary emboli Brother Throat cancer Social History Social History Household Members: Significant Other Housing: Other Housing Other:: fdc/motel 6 Do you presently have visiting nurse or other home services: No Alcohol intake: current Alcohol intake frequency: 0-2 drinks per day Alcohol type: beer Patient Tobacco Use Status: Never used Tobacco Second Hand Smoke Exposure: No Advance Directives: No Advance Directives Information Provided: No Patient : No service: No Current occupational status: unemployed Physical Exam Vital Signs: Vital Signs: Last Vital Signs Temp 98.0 F 09/30/20 03:46 Pulse 118 H 09/30/20 06:52 Resp 20 09/30/20 06:52 BP 60/37 L 09/30/20 06:52 Pulse Ox 100 09/30/20 06:52 Body Mass Index 24.1 VITAL SIGNS: Reviewed. GENERAL: Well developed, well nourished, in no acute distress. HEAD: Normocephalic/atraumatic, EYES: PERRLA, EOMI with icterus noted EARS: Ext canals without abnormality NOSE: Nares patent bilateral OROPHARYNX: no oral lesions noted, posterior pharynx clear LUNGS: Normal breath sounds. No adventitious sounds or accessory muscle use. SpO2<97> CARDIOVASCULAR: Regular rate and rhythm without noted murmurs ABDOMEN: Soft, non-tender, non-distended with bowel sounds. ELIZABETH: Not inflamed external hemorrhoids, large amount of soft brown stool in the rectal vault without gross blood, good rectal tone. SKIN: Inspection of the skin reveals no rashes, but jaundice and multiple, scattered ecchymoses. NEUROLOGIC: Alert and oriented x 4. Strength and sensation to light touch were grossly intact x 4. Course Course Course Narrative: 39-year-old female with history and clinical presentation suggestive alcohol intoxication versus possibly encephalopathic. After conferring with blood bank on patient's initial arrival they have advised the patient has many antibodies and that cross matching will take an extended period of time. In the interim, patient was provided with crystalloid resuscitation for noted tachycardia and hypotension. Patient remained cognitively intact, however became progressively fatigued with episodes of inattention. Review of all investigations consistent with acute anemia with a negative ELIZABETH and a benign abdomen but hypotensive and tachycardic and having received 3 L of crystalloids. Due to patient's antibodies still awaiting crossmatch and CT scan suspicious for splenic injury with current extravasation. Patient became progressively hypotensive and MTP was initiated with a call to [facility] for immediate transfer after official read of ruptured spleen. Left IJ as well as right femoral line were placed. [facility] will be unable to assemble the necessary resources prior to patient being transferred to [facility]. Patient blood pressure responded well to blood transfusion. Reevaluation(s) Reevaluation #1: MTP called. Time: 06:33 Reevaluation #2: Official read from [place] ruptured spleen. Time: 06:39 Procedures Central Line Placement Right Femoral: Time Out Performed: No Patient Placed on Monitor/Pulse Ox: Yes Prep: mask and gloves Central Line Prep: Chlorhexidine scrub Ultrasound Used for Placement: No Central Line Lumen Inserted: triple Post Procedure: sutured in place, good blood return, all ports aspirated, flushed, capped and sterile dressing applied Patient Tolerated Procedure: well Complications: none Medical Decision Making Lab Data Result diagrams: 09/30/20 05:09 09/30/20 04:13 Labs: Lab Results 09/30/20 09/30/20 09/30/20 Range/Units 04:13 04:13 04:13 WBC 8.1 (4.8-10.8) X10*3/uL RBC 1.86 L D (4.20-5.50) X10*6/uL Hgb 5.5 L* D (12.0-16.0) g/dl Hct 18.4 L* D (37-47) % MCV 98.9 H (80-98) fL MCH 29.6 (27.0-33.0) pg MCHC 29.9 L (31.0-35.0) g/dl RDW 18.3 H (11.0-16.0) % Plt Count 97 L D (160-400) X10*3/uL MPV 9.2 L (9.4-12.3) fL Immature Gran % (Auto) 0.5 H (0.0-0.4) % Neut % (Auto) 55.8 (45-73) % Lymph % (Auto) 34.8 (20-40) % [place] % (Auto) 7.4 (2-11) % Eos % (Auto) 0.9 (0-4) % Baso % (Auto) 0.6 (0-2) % Lymph # (Auto) 2.8 (1.2-4.9) X10*3/uL [place] # (Auto) 0.6 (0.1-1.2) X10*3/uL Eos # (Auto) 0.1 (0.0-0.4) X10*3/uL Baso # (Auto) 0.1 (0.0-0.2) X10*3/uL Abs Immat Gran (auto) 0.04 H (0.00-0.03) X10*3/uL Absolute Neuts (auto) 4.5 (2.0-8.3) X10*3/uL Absolute Nucleated RBC 0.000 (0.0-0.012) X10*3/uL Nucleated RBC % (auto) 0.0 (0.0-0.2) /100WBC PT (10.8-13.0) SEC INR (0.9-1.1) Sodium 137 (135-145) mmol/L Potassium 3.6 (3.3-5.1) mmol/L Chloride 107 (96-108) mmol/L Carbon Dioxide 20 L (22-29) mmol/L Anion Gap 14 (12-20) BUN 6 L (9-16) mg/dL Creatinine 0.63 (0.5-1.4) mg/dL Estim Creat Clear Calc 114.2 Estimated GFR > 60 Random Glucose 157 H D (60-115) mg/dL Calcium 7.2 L (8.4-10.2) mg/dL Magnesium 1.5 L (1.6-2.6) mg/dL Total Bilirubin 6.0 H (0.0-1.0) mg/dL AST 69 H (5-31) U/L ALT 14 (0-31) U/L Alkaline Phosphatase 126 H (39-117) U/L Ammonia 71 H (13-55) umol/L Total Protein 5.7 L (6.5-8.0) g/dL Albumin 2.1 L (3.5-5.0) g/dL Stool Occult Blood (NEGATIVE) Ethyl Alcohol mg/dL COVID-19 (JOHN) (Negative) COVID-19 Clin Com Blood Type Antibody Screen Crossmatch (AHG) 06/09/30/20 09/30/20 Range/Units 04:13 04:13 04:45 WBC (4.8-10.8) X10*3/uL RBC (4.20-5.50) X10*6/uL Hgb (12.0-16.0) g/dl Hct (37-47) % MCV (80-98) fL MCH (27.0-33.0) pg MCHC (31.0-35.0) g/dl RDW (11.0-16.0) % Plt Count (160-400) X10*3/uL MPV (9.4-12.3) fL Immature Gran % (Auto) (0.0-0.4) % Neut % (Auto) (45-73) % Lymph % (Auto) (20-40) % [place] % (Auto) (2-11) % Eos % (Auto) (0-4) % Baso % (Auto) (0-2) % Lymph # (Auto) (1.2-4.9) X10*3/uL [place] # (Auto) (0.1-1.2) X10*3/uL Eos # (Auto) (0.0-0.4) X10*3/uL Baso # (Auto) (0.0-0.2) X10*3/uL Abs Immat Gran (auto) (0.00-0.03) X10*3/uL Absolute Neuts (auto) (2.0-8.3) X10*3/uL Absolute Nucleated RBC (0.0-0.012) X10*3/uL Nucleated RBC % (auto) (0.0-0.2) /100WBC PT 29.1 H D (10.8-13.0) SEC INR 2.4 H (0.9-1.1) Sodium (135-145) mmol/L Potassium (3.3-5.1) mmol/L Chloride (96-108) mmol/L Carbon Dioxide (22-29) mmol/L Anion Gap (12-20) BUN (9-16) mg/dL Creatinine (0.5-1.4) mg/dL Estim Creat Clear Calc Estimated GFR Random Glucose (60-115) mg/dL Calcium (8.4-10.2) mg/dL Magnesium (1.6-2.6) mg/dL Total Bilirubin (0.0-1.0) mg/dL AST (5-31) U/L ALT (0-31) U/L Alkaline Phosphatase (39-117) U/L Ammonia (13-55) umol/L Total Protein (6.5-8.0) g/dL Albumin (3.5-5.0) g/dL Stool Occult Blood NEGATIVE (NEGATIVE) Ethyl Alcohol 230 mg/dL COVID-19 (JOHN) (Negative) COVID-19 Clin Com Blood Type Antibody Screen Crossmatch (AHG) 09/30/20 09/30/20 09/30/20 Range/Units 04:45 05:09 05:09 WBC 6.7 (4.8-10.8) X10*3/uL RBC 1.49 L (4.20-5.50) X10*6/uL Hgb 4.4 L* (12.0-16.0) g/dl Hct 14.9 L* (37-47) % MCV 100.0 H (80-98) fL MCH 29.5 (27.0-33.0) pg MCHC 29.5 L (31.0-35.0) g/dl RDW 18.5 H (11.0-16.0) % Plt Count 85 L (160-400) X10*3/uL MPV 8.9 L (9.4-12.3) fL Immature Gran % (Auto) 0.8 H (0.0-0.4) % Neut % (Auto) 69.8 (45-73) % Lymph % (Auto) 22.1 (20-40) % [place] % (Auto) 6.5 (2-11) % Eos % (Auto) 0.5 (0-4) % Baso % (Auto) 0.3 (0-2) % Lymph # (Auto) 1.5 (1.2-4.9) X10*3/uL [place] # (Auto) 0.4 (0.1-1.2) X10*3/uL Eos # (Auto) 0.0 (0.0-0.4) X10*3/uL Baso # (Auto) 0.0 (0.0-0.2) X10*3/uL Abs Immat Gran (auto) 0.05 H (0.00-0.03) X10*3/uL Absolute Neuts (auto) 4.7 (2.0-8.3) X10*3/uL Absolute Nucleated RBC 0.000 (0.0-0.012) X10*3/uL Nucleated RBC % (auto) 0.0 (0.0-0.2) /100WBC PT (10.8-13.0) SEC INR (0.9-1.1) Sodium (135-145) mmol/L Potassium (3.3-5.1) mmol/L Chloride (96-108) mmol/L Carbon Dioxide (22-29) mmol/L Anion Gap (12-20) BUN (9-16) mg/dL Creatinine (0.5-1.4) mg/dL Estim Creat Clear Calc Estimated GFR Random Glucose (60-115) mg/dL Calcium (8.4-10.2) mg/dL Magnesium (1.6-2.6) mg/dL Total Bilirubin (0.0-1.0) mg/dL AST (5-31) U/L ALT (0-31) U/L Alkaline Phosphatase (39-117) U/L Ammonia (13-55) umol/L Total Protein (6.5-8.0) g/dL Albumin (3.5-5.0) g/dL Stool Occult Blood (NEGATIVE) Ethyl Alcohol mg/dL COVID-19 (JOHN) Negative (Negative) COVID-19 Clin Com See Note Blood Type A Positive Antibody Screen NEGATIVE Crossmatch (AHG) See Detail ECG Data Attestation: I personally reviewed and interpreted this ECG as follows: Prior ECG tracings: available for review (07/22/2020 no acute changes on comparison) Interpretation: Sinus tachycardia, HR -120, no acute evidence of ischemia, UT/QRS/QTC are within normal limits. Critical Care Time Critical Care Time Critical Care Time: Yes Total Critical Care Time: 45 Attestation: I personally attest to this time spent taking care of the patient. Discharge Plan Discharge Clinical Impression: Alcohol dependence, Alcohol intoxication, Rupture, spleen, Acute blood loss anemia Patient Disposition: er [facility] Transfer Details: Ruptured spleen needs acute surgical intervention Prescriptions: No Action thiamine HCl (vitamin B1) 100 mg tablet 1 tab PO DAILY RF: 0 melatonin 3 mg tablet 1 tab PO BEDTIME RF: 0 lidocaine 5 % adhesive patch,medicated 1 - 2 patch topical DAILY PRN (Reason: Pain) RF: 0 omeprazole 20 mg capsule,delayed release(DR/EC) 1 cap PO BIDAC RF: 0 folic acid 1 mg tablet 1 tab PO DAILY RF: 0 multivitamin with minerals Tablet 1 tab PO DAILY RF: 0 albuterol sulfate [ProAir HFA] 90 mcg/actuation HFA aerosol inhaler 2 puff PO Q4-6H PRN (Reason: Shortness Of Breath) RF: 0 cholecalciferol (vitamin D3) 50 mcg (2,000 unit) capsule 1 cap PO DAILY RF: 0 gabapentin 300 mg capsule 1 cap PO TID RF: 0 Iron Supplement 1 tab PO DAILY RF: 0 nadolol 20 mg Tablet 10 mg PO DAILY Qty: 30 RF: 0 lactulose 20 gram/30 mL Solution 30 g PO BID Qty: 1500 RF: 0
--- NOTE | 2020-09-30 04:05 | PC.NURSE ---
at bedside for primary eval.
--- NOTE | 2020-09-30 04:07 | ECG_ITS ---
Test Reason : FALL Blood Pressure : / mmHG Vent. Rate : 120 BPM Atrial Rate : 120 BPM P-R Int : 140 ms QRS Dur : 090 ms QT Int : 340 ms P-R-T Axes : 031 009 013 degrees QTc Int : 480 ms Sinus tachycardia Minimal voltage criteria for LVH, may be normal variant Possible Anterior infarct (cited on or before 10-OCT-2019) Abnormal ECG When compared with ECG of 22-JUL-2020 03:41, No significant changes seen Referred By: Alejandrina Vidal Electronically Signed By:GINA COLBERT
--- NOTE | 2020-09-30 04:12 | PC.NURSE ---
This RN at bedside, attempted to assist pt OOB to obtain urine sample. Pt suddenly started shaking and laid back in bed, pt remained awake throughout brief episode, recovering quickly with no LOC or confusion. This RN again attempted to assist pt OOB but pt began to shake and again laid back in bed. Once pt was assisted back into bed, telemetry reconnected, HR noted to be 148 bpm. at bedside. EKG obtained by technical operations vice president. IV established, labs obtained, IVF infusing per MAR. Awaiting lab results. Continue to monitor.
[2020-09-30] MEDS: 0.9 % Sodium Chloride 1,000 ML 999 ML IV ×2 (04:15→05:07)
[2020-09-30 04:19] LABS: Basophils Absolute Auto 0.1 X10*3/uL (0.0-0.2); Basophils Percent Auto 0.6 % (0-2); Eosinophils Absolute Auto 0.1 X10*3/uL (0.0-0.4); Eosinophils Percent Auto 0.9 % (0-4); Imm Gran Abs Auto 0.04 X10*3/uL (0.00-0.03); Imm Gran Pct Auto 0.5 % (0.0-0.4); Lymphocytes Absolute Auto 2.8 X10*3/uL (1.2-4.9); Lymphocytes Percent Auto 34.8 % (20-40); Mean Corpuscular HGB Conc 29.9 g/dl (31.0-35.0); Mean Corpuscular Hemoglobin 29.6 pg (27.0-33.0); Mean Corpuscular Volume 98.9 fL (80-98); Mean Platelet Volume 9.2 fL (9.4-12.3); Monocytes Absolute Auto 0.6 X10*3/uL (0.1-1.2); Monocytes Percent Auto 7.4 % (2-11); Neutrophils Absolute Auto 4.5 X10*3/uL (2.0-8.3); Neutrophils Percent Auto 55.8 % (45-73); Red Blood Count 1.86 X10*6/uL (4.20-5.50); Red Cell Distribution Width 18.3 % (11.0-16.0); White Blood Count 8.1 X10*3/uL (4.8-10.8)
[2020-09-30 04:20] LABS: MANUAL DIFF FLAG NO
[2020-09-30 04:21] LABS: Platelet Count 97 X10*3/uL (160-400)
[2020-09-30 04:31] LABS: INTERNATIONAL NORM RATIO 2.4 (0.9-1.1); Prothrombin Time 29.1 SEC (10.8-13.0)
[2020-09-30 04:32] LABS: Hemoglobin 5.5 g/dl (12.0-16.0)
[2020-09-30 04:33] LABS: Hematocrit 18.4 % (37-47)
[2020-09-30 04:35] LABS: Ammonia 71 umol/L (13-55)
[2020-09-30 04:40] LABS: Ethanol 230 mg/dL
[2020-09-30 04:46] LABS: Alanine Aminotransferase 14 U/L (0-31); Albumin Level 2.1 g/dL (3.5-5.0); Alkaline Phosphatase 126 U/L (39-117); Anion Gap 14 (12-20); Aspartate Amino Transferase 69 U/L (5-31); Blood Urea Nitrogen 6 mg/dL (9-16); Calcium 7.2 mg/dL (8.4-10.2); Carbon Dioxide 20 mmol/L (22-29); Chloride 107 mmol/L (96-108); Creatinine Clr Calc Pharmacy 114.2; Estimated Glomerular Filt Rate > 60; Glucose Random 157 mg/dL (60-115); Potassium 3.6 mmol/L (3.3-5.1); Sodium 137 mmol/L (135-145); Total Protein 5.7 g/dL (6.5-8.0)
[2020-09-30 04:51] LABS: OBS Int Ctl Valid YES; OBS1 NEGATIVE (NEGATIVE)
[2020-09-30 05:03] LABS: COVID-19 Test Negative (Negative); IDNOW Serial# 9DD0AD1C
[2020-09-30 05:05] LABS: Magnesium 1.5 mg/dL (1.6-2.6)
[2020-09-30 05:16] LABS: Basophils Percent Auto 0.3 % (0-2); Eosinophils Percent Auto 0.5 % (0-4); Imm Gran Abs Auto 0.05 X10*3/uL (0.00-0.03); Imm Gran Pct Auto 0.8 % (0.0-0.4); Lymphocytes Absolute Auto 1.5 X10*3/uL (1.2-4.9); Lymphocytes Percent Auto 22.1 % (20-40); MANUAL DIFF FLAG NO; Mean Corpuscular HGB Conc 29.5 g/dl (31.0-35.0); Mean Corpuscular Hemoglobin 29.5 pg (27.0-33.0); Mean Platelet Volume 8.9 fL (9.4-12.3); Monocytes Absolute Auto 0.4 X10*3/uL (0.1-1.2); Monocytes Percent Auto 6.5 % (2-11); Neutrophils Absolute Auto 4.7 X10*3/uL (2.0-8.3); Neutrophils Percent Auto 69.8 % (45-73); Red Blood Count 1.49 X10*6/uL (4.20-5.50); Red Cell Distribution Width 18.5 % (11.0-16.0); White Blood Count 6.7 X10*3/uL (4.8-10.8)
[2020-09-30] MEDS: ondansetron HCL 4 MG/2 ML VIAL IVPUSH (05:20)
--- NOTE | 2020-09-30 05:20 | PC.NURSE ---
MD notified of hypotension. MD at bedside for reeval. Plan for CT once stable.
[2020-09-30 05:22] LABS: Hemoglobin 4.4 g/dl (12.0-16.0)
[2020-09-30 05:23] LABS: Hematocrit 14.9 % (37-47); Platelet Count 85 X10*3/uL (160-400)
--- NOTE | 2020-09-30 05:25 | PC.NURSE ---
Pt off to CT on [facility] for transport.
[2020-09-30] MEDS: iohexoL 350 MG/ML 100 ML INFUS..BTL 85 ML IV (05:50)
--- NOTE | 2020-09-30 06:19 | PC.NURSE ---
Total of 3 liters of NS infused at this time. aware of BP. Bear hugger applied as fluid warmer broken. aware.
--- NOTE | 2020-09-30 06:20 | PC.NURSE ---
While in CT, 18 ga to LAC was torn out. Second IV established to right hand, 20 ga.
--- NOTE | 2020-09-30 06:29 | PC.NURSE ---
2 additional liters of NS hung due to persistent hypotension. Pt increasingly confused, unable to follow commands. MD aware.
--- NOTE | 2020-09-30 06:37 | PC.NURSE ---
@ 06:33 CODE MTP PAGED OVER HEAD X'S [address] COX REQUEST
--- NOTE | 2020-09-30 06:43 | PC.NURSE ---
@06:39 DR COX REQUEST CALL OUT TO [facility] PT [place] LINE [phone] LUIS ANSWERS, TAKES PT INFO, CALL BACK NUMBER AND ASKS TO SPEAK WITH DR BROOKE COX TAKES OVER CALL RIGHT AWAY @[phone] RETURN CALL FROM SHAWN FROM [facility] PT TX LINE ASKS TO SPEAK WITH DR BROOKE COX TAKES OVER CALL RIGHT AWAY
--- NOTE | 2020-09-30 06:53 | PC.NURSE ---
@[phone] RETURN CALL FROM [facility] IN THE [facility] PT [place] LINE ASKING TO SPEAK WITH DR BROOKE [facility] TAKES OVER CALL
--- NOTE | 2020-09-30 07:17 | PC.NURSE ---
@ [id number] DR COX ASKS FOR AMBULANCE ETA AND STATES DR ANDRE ACCEPTS THIS PT FOR TRANSFER CAT 1 TRAUMA TRANSFER 0711 [facility] CALLED FOR STAT TRANSFER WITH CARDIAC MONITORE, OXYGEN,FLUIDS AND BLOOD RUNNING
--- NOTE | 2020-09-30 07:19 | PC.NURSE ---
Report given to Shakira Topete RN at [facility] ER Trauma. MTP code currently in progress. Report given by BLAIRE Jara.
--- NOTE | 2020-09-30 07:38 | PC.NURSE ---
[facility] LEAVES WITH THIS PT @ THIS TIME TO GO TO [facility]
--- NOTE | 2020-09-30 07:41 | PC.NURSE ---
EMS at bedside for transport to [facility].
--- NOTE | 2020-09-30 07:42 | PC.NURSE ---
Late entry: Due to hypotension, MTP was paged overhead. Leyla at bedside establishing access to left neck 18 ga. Young and Leyla establishing access to right fem. Pt transfused with a total of 6 units of packed RBCs, 4 FFPs, and 5 liters of NS total. Duron placed by BLAIRE Rosado. Pt remained hypotensive, immediately prior to transport was 90/60 with a HR of 120 despite volume and fluid replacement. Pt aware of plan to be transferred to [facility] as a Cat 1 trauma. Report to [facility] given by BLAIRE Jara.
--- NOTE | 2020-09-30 09:22 | P.CONGS_ITS ---
History of Present Illness Consult details Consult date: 09/30/20 Narrative: 39 year female referred to me because of splenic bleeding after a fall. She apparently is well known in the emergency room for frequent admissions and visits. She has a long history of chronic liver disease alcohol. She was brought to the emergency room after she had fallen at home. Hemoglobin was 5.5 earlier. During the course of her stay in the ER, she however is noted to be hypotensive and her CAT scan eventually showed a splenic injury with parenchymal bleeding and hemoperitoneum. Massive transfusion protocol was activated. I was called because of this. Review of Systems Review of Systems: Yes Unobtainable due to mental condition PMFSH Past Medical History Medical History Alcohol dependence Alcoholic cirrhosis Anemia, chronic disease Bronchial asthma DVT (deep vein thrombosis) in H/O varicose veins HTN (hypertension) Nasal bleeding Pancytopenia Family History Family History Father Pulmonary emboli Brother Throat cancer Social History Social History Household Members: Significant Other Housing: Other Housing Other:: [employer] Do you presently have visiting nurse or other home services: No Alcohol intake: current Alcohol intake frequency: 0-2 drinks per day Alcohol type: beer Patient Tobacco Use Status: Never used Tobacco Second Hand Smoke Exposure: No Use of substances other than those prescribed or required for medical reasons: Unknown Advance Directives: No Advance Directives Information Provided: No Patient : No service: No Current occupational status: unemployed Meds Allergies Allergy/AdvReac Type Severity Reaction Status Date / Time No Known Allergies Allergy Verified 09/08/20 00:04 Home Medications Medication Instructions Recorded Confirmed Last Taken Type Iron Supplement 1 tab PO DAILY 09/15/20 09/15/20 09/13/20 History albuterol sulfate [ProAir HFA] 2 puff PO Q4-6H PRN 09/15/20 09/15/20 Unknown History cholecalciferol (vitamin D3) 1 cap PO DAILY 09/15/20 09/15/20 09/13/20 History folic acid 1 tab PO DAILY 09/15/20 09/15/20 09/13/20 History gabapentin 1 cap PO TID 09/15/20 09/15/2021 History lidocaine 1 - 2 patch TOPICAL DAILY PRN 09/15/20 09/15/20 Unknown History melatonin 1 tab PO BEDTIME 09/15/20 09/15/20 09/13/20 History multivitamin with minerals 1 tab PO DAILY 09/15/20 09/15/20 09/13/20 History omeprazole 1 cap PO BIDAC 09/15/20 09/15/20 09/13/20 History thiamine HCl (vitamin B1) 1 tab PO DAILY 09/15/20 09/15/20 09/13/20 History Physical Exam Vital Signs: Vital Signs: Last Vital Signs Temp 98.0 F 09/30/20 03:46 Pulse 115 H 09/30/20 08:35 Resp 20 09/30/20 08:35 BP 60/37 L 09/30/20 06:52 Pulse Ox 100 09/30/20 06:52 Body Mass Index 24.1 Const: Other: Communicative Orientation/consciousness: patient oriented x3 Resp: Effort & Inspection: normal respiratory effort GI: Other: soft but with diffuse tenderness, ascites Neuro: General: patient oriented x3 Results Labs Result diagrams: 09/30/20 05:09 09/30/20 04:13 Labs: Abnormal lab results 09/30/20 09/30/20 09/30/20 Range/Units 04:13 04:13 04:13 RBC 1.86 L D (4.20-5.50) X10*6/uL Hgb 5.5 L* D (12.0-16.0) g/dl Hct 18.4 L* D (37-47) % MCV 98.9 H (80-98) fL MCHC 29.9 L (31.0-35.0) g/dl RDW 18.3 H (11.0-16.0) % Plt Count 97 L D (160-400) X10*3/uL MPV 9.2 L (9.4-12.3) fL Immature Gran % (Auto) 0.5 H (0.0-0.4) % Abs Immat Gran (auto) 0.04 H (0.00-0.03) X10*3/uL PT (10.8-13.0) SEC INR (0.9-1.1) Carbon Dioxide 20 L (22-29) mmol/L BUN 6 L (9-16) mg/dL Random Glucose 157 H D (60-115) mg/dL Calcium 7.2 L (8.4-10.2) mg/dL Magnesium 1.5 L (1.6-2.6) mg/dL Total Bilirubin 6.0 H (0.0-1.0) mg/dL AST 69 H (5-31) U/L Alkaline Phosphatase 126 H (39-117) U/L Ammonia 71 H (13-55) umol/L Total Protein 5.7 L (6.5-8.0) g/dL Albumin 2.1 L (3.5-5.0) g/dL Crossmatch (AHG) 09/30/20 09/30/20 09/30/20 Range/Units 04:13 05:09 05:09 RBC 1.49 L (4.20-5.50) X10*6/uL Hgb 4.4 L* (12.0-16.0) g/dl Hct 14.9 L* (37-47) % MCV 100.0 H (80-98) fL MCHC 29.5 L (31.0-35.0) g/dl RDW 18.5 H (11.0-16.0) % Plt Count 85 L (160-400) X10*3/uL MPV 8.9 L (9.4-12.3) fL Immature Gran % (Auto) 0.8 H (0.0-0.4) % Abs Immat Gran (auto) 0.05 H (0.00-0.03) X10*3/uL PT 29.1 H D (10.8-13.0) SEC INR 2.4 H (0.9-1.1) Carbon Dioxide (22-29) mmol/L BUN (9-16) mg/dL Random Glucose (60-115) mg/dL Calcium (8.4-10.2) mg/dL Magnesium (1.6-2.6) mg/dL Total Bilirubin (0.0-1.0) mg/dL AST (5-31) U/L Alkaline Phosphatase (39-117) U/L Ammonia (13-55) umol/L Total Protein (6.5-8.0) g/dL Albumin (3.5-5.0) g/dL Crossmatch (AHG) See Detail Short CBC 09/30/20 09/30/20 Range/Units 04:13 05:09 WBC 8.1 6.7 (4.8-10.8) X10*3/uL Hgb 5.5 L* D 4.4 L* (12.0-16.0) g/dl Hct 18.4 L* D 14.9 L* (37-47) % Plt Count 97 L D 85 L (160-400) X10*3/uL BMP 09/30/20 04:13 Sodium 137 Potassium 3.6 Chloride 107 Carbon Dioxide 20 L BUN 6 L Creatinine 0.63 Calcium 7.2 L Liver Function 09/30/20 Range/Units 04:13 Total Bilirubin 6.0 H (0.0-1.0) mg/dL AST 69 H (5-31) U/L ALT 14 (0-31) U/L Alkaline Phosphatase 126 H (39-117) U/L Albumin 2.1 L (3.5-5.0) g/dL All other labs normal. Assessment and Plan (1) Rupture, spleen: Status: Acute Her CAT scan had shown a grade 4 splenic injury with intraparenchymal and subcapsular hematomas . Review of her images also reveal significant portal hypertension chronic liver disease. She was coagulopathic with an INR 2.4. When I came to see the patient, she had been transfused 3 units of packed RBCs and FFP is and appeared to be hemodynamically stable by then with a blood pressure of 90s over 50s. The EMT transport team was already in to transfer her to [facility] trauma. I did feel that this would be her better option of management in view of her portal hypertension and chronic liver disease and likely complex perioperative course. She did appear to be much more hemodynamically stable for transport as well and it would have been quicker to arrange for urgent OR set-up over there in this particular situation. I had stayed at bedside with the ER personnel until transfer. Procedures Date of Service Date of Service: 09/30/20
== END 2020-09-30 08:09 | disposition short-term general hospital (02) ==
PROVIDERS: Emergency Provider Student in an Organized Health Care Education/Training Program
DX: S36.09XA Other injury of spleen, initial encounter (principal); D62 Acute posthemorrhagic anemia; I95.9 Hypotension, unspecified; F10.229 Alcohol dependence with intoxication, unspecified; R00.0 Tachycardia, unspecified; X58.XXXA Exposure to other specified factors, initial encounter; Y93.9 Activity, unspecified; Y92.9 Unspecified place or not applicable; Y99.9 Unspecified external cause status
CPT/HCPCS: 36410; 36415; 36430; 70450; 74178; 80053; 82077; 82140; 82272; 83735; 85025; 85610; 86850; 86900; 86901; 86920; 86922; 86927; 87635; 93005; 96361; 96374; 99285; 99291; J2405; P9016; P9017; Q9967

== ENCOUNTER → 2023-12-12 10:52 | Outpatient (RCR) | payer MEDICAID, SELFPAY | END | disposition home or self-care (01) | LOC: HO.ONC 03-05 15:17 | PROVIDERS: PCP Family Medicine; Referring Provider Family Medicine; Visit Provider Internal Medicine Medical Oncology | DX: Z13.89 Encounter for screening for other disorder (principal) ==